=== PATIENT | male | born 1950 | race Caucasian/White ===

== ENCOUNTER → 2016-09-26 | Outpatient (CLI) | payer OTHER ==
[~2016-09-26] MED LIST: ALPR-411 PO; ASPI81TA28 PO; ATOR-22 PO; CHOL100010 PO; CHOL2000 PO; CLC6 PO; CLON1TAB3 PO; DILT-115 PO; GLC5 PO; GLC850 PO; GLIP5TAB11 PO; LISI40TA PO; MENT1CRE TOP; METF-383 PO; NTRGSL/4 UT; POLY335019 PO; PRLSR20 PO; SULF800T23 PO; TERA5CAP PO; [UNRECOGNIZED DRUG - CODE] PO
--- NOTE | 2016-09-27 05:57 | PAP/PSG TECHNICIAN REPORT ---
[facility] Pole Peeler Polysomnogram Report Study name: None Report date: 09/27/2016 Study date: 09/26/2016 Referring Physician: Karen Saldaña M.D. Name: DALLAS VILLAR Interpreting Physician: Osvaldo Newman D.O. Date of : 1950 Pole Peeler: Chris Paz RPSGT. Sex: Male Age: 66 StudyType: PSG Weight: 220 lbs Height: 66 years, Height 5' 9" BMI: 32.48 Medications: Angela Plus Test Strip, Diltiazem 240mg, Glipizide 5mg, Lisinopril 40mg, Metformin 580mg, Nitrostat 0.4mg, Omeprazole 20mg, Terazosin HCl 5mg, ASA 81mg Patient History Study started on room air with no ETCO2 monitoring in room #1. 65 yr old male here tonight for a diagnostic psg. His chief complaints are fatigue and snoring. He has diabetes and HTN. He has had HTN since he was in his 20's. His ESS=3/24.. Parameters Monitored NPSG: E1-M2, E2-M1, Fp1-M2, Fp2-M1, F3-M2, F4-M2, F4-M1, C3-M2, C4-M2, C4-M1, O1-M2, O2-M2, O2-M1, T3-M2, T4-M1, P3-M2, P4-M1, CHIN1, CHIN2, HR, EKG, Legs, PFLOW, SNOR, FLOW, CFLOW, Tidal Volume, THOR, ABDO, SpO2, PLTH, CPRESS, ETCO2 Wave, ETCO2, pH Sleep Architecture Sleep Stages Time at Lights Off 8:28:32 PM STAGES Time (min.) TST (%) Time at Lights On 5:29:32 AM Wake 171.0 -- Total Recording Time (TRT) 541.50 min. N1 25.0 7 Total Sleep Period (TSP) 432.5 min. N2 203.5 55 Total Sleep Time (TST) 370.0min. N3 53.0 14 Awake Time 171.0 min. REM 88.5 24 Wake after Sleep Onset 62.5 min. Sleep Efficiency (SE) 68 % Sleep Onset Latency (CLAU) 108.5 min. Number of Stage 1 Shifts None Awakenings 16 Stage Changes 64 Number of REM periods 5 REM 88.5 24 REM Latency 218.0 min. NREM 281.5 76 Body Position Analysis Supine Right Left Side Prone Vertical Total Sleep Time (min.) 97.1 158.0 158.3 316.28 0.0 0.0 Total Sleep Time (%) 15% 43% 43% 85 0% N/A% Total Sleep Time REM (min.) 30.5 58.0 0.0 None 0.0 0.0 Total Sleep Time NREM (min.) 23.2 100.0 158.3 None 0.0 0.0 Intermittent Wake (min.) 43.3 87.5 40.2 None 0.0 0.0 Total Sleep Period (%) 14% None None None None None Arousals Myoclonus (PLM) * Events Count Index Events Count Index Spontaneous 24 4 Events Awake (PLMW) 63 22.1 Respiratory 13 2.3 Events Asleep w/ Arousal (PLMA) 6 1.0 PLM 6 1 Events Asleep w/o Arousal (PLMS) 99 16.1 Snoring 19 3 Total Asleep 105 17.0 Total 61 10 Total 168 19 Respiratory Analysis * CA OA MA CH H RERA Total Count 0 1 0 0 36 4 37 Index 0.0 0.2 0.0 0 5.8 1 6.6 Mean Duration 0.0 13.3 0.0 0.00 21.1 16.8 20.5 Longest Duration 0.0 13.3 0.0 0.00 0.0 21.1 42.3 Respiratory Event Summary Total Supine ~Supine Right Left Prone REM NREM Apneas Count 1 1 0 0 0 N/A 1 0 Index 0.2 1 0 0.0 0.0 N/A 1 0 Hypopneas (4% Desat) Count 36 27 9 4 5 N/A 21 15 Index 5.8 30.2 2 1.5 1.9 N/A 14.2 3.2 Apneas & All Hypopneas Count 37 28 9 4 5 N/A 22 15 Index 6.0 31 2 2 2 N/A 14.9 3.2 Respiratory Events (Sheet Heater+All Hyp+RERA) Count 37 32 9 4 5 N/A 22 15 Index 6.6 36 2 1.5 1.9 N/A 16.3 3.6 Respiratory Related Arousal Count 13 32 3 0 3 N/A 5 9 Index 2.3 12 1 0 1 N/A 3 2 Snoring Analysis Supine Right Left Prone REM NREM Total Snore duration 17.2 min Snores count 385 345 206 N/A 146 790 936 Snore mean duration 1.1 Sec Snores index 430 131 78 N/A 99.0 168.4 151.8 TST with snoring (%) 4.7% Desaturation Event Summary: Minimum %SpO2 Event Count Mean/Min/Max Duration(sec.) Desaturation Index % Time In Bed > 90 32 40.1 / 15.3 / 67.9 9.4 38.4 86 - 90 19 32.6 / 12.8 / 108.6 3.5 61.3 81 - 85 0 N/A 0.0 0.3 76 - 80 0 N/A 0.0 0.0 71 - 75 0 N/A 0.0 0.0 66 - 70 0 N/A 0.0 0.0 61 - 65 0 N/A 0.0 0.0 56 - 60 0 N/A 0.0 0.0 51 - 55 0 N/A 0.0 0.0 < 50 0 N/A 0.0 0.0 Total REM NREM Awake <50% 0.0 min. 0.0 min. 0.0 min. 0.0 min. 51 - 60% 0.0 min. 0.0 min. 0.0 min. 0.0 min. 61 - 70% 0.0 min. 0.0 min. 0.0 min. 0.0 min. 71 - 80% 0.0 min. 0.0 min. 0.0 min. 0.0 min. 81 - 90% 326.2 min. 69.8 min. 229.2 min. 27.1 min. 91 - 100% 203.4 min. 18.7 min. 52.3 min. 132.4 min. Average 90 90 90 92 Minimum SpO2 82 84 85 82 Desaturation Event Index 4.7 14.9 3.0 2.1 # Desat. Events below 89% 34 20 13 1 Time(%) with Saturation below 89% 13.4 2.7 10.1 0.6 Time(min.) with Saturation below 89% 71.0 14.5 53.3 3.2 Time (mins) REM (mins) NREM (mins) % of TST SpO2 Below 90% 36 22 N14 46.5 SpO2 Below 88% 22 0 0 3 Heart Rate Analysis Min (bpm) Max (bpm) Average (bpm) Awake 50 78 59 NREM 47 65 55 REM 49 66 55 Overall 47 66 55 Supplemental O2 Values Minimum O2 level: None Value Start Time End Time Pole Peeler Comments Mr. Villar slept in the right, left and supine positions. No cardiac arrhythmia noted. Leg movements noted. No bruxism noted. Snoring was noted and scored as a 3 on a scale of 1 through 5. (0=no snoring, 5=snoring loud enough to be heard through a closed door or down the [address]) Mr. Villar awoke to use the restroom 1 time during the night. Mr. Villar stated I did not sleep as well as I do when I am in my own bed. The final report will be interpreted and signed by a sleep physician. The completed physician report will then be placed in the patient medical record. Therapy (cm H2O) 0 TIB (min.) 541.0 TST (min.) 370.0 Sleep Onset (min.) 108.5 REM Onset From Sleep (min.) 218.0 Sleep Efficiency % 68 Wakefulness (%) 32 Wakefulness (min.) 171.0 NREM 1 (%) 7 NREM 1 (min.) 25.0 NREM 2 (%) 55 NREM 2 (min.) 203.5 NREM 3 (%) 14 NREM 3 (min.) 53.0 REM (%) 24 REM (min.) 88.5 # Arousals 61 Arousal Index 10 # Snore 936 Snore Index 151.8 AHI 6.0 AHI Supine 31 AHI Non-Supine 2 NREM AHI 3.2 REM AHI 14.9 RDI 6.6 # Obstructive Apnea 1 # Central Apnea 0 # Mixed Apnea 0 # Hypopneas 36 RERAs 4 Total Respiratory Events 44 Time Below SpO2 89% (min.) 67.8 Mean NREM SpO2 (%) 90 Mean REM SpO2 (%) 90 Mean Sleep SpO2 (%) 90 Min NREM SpO2 (%) 85 Min REM SpO2 (%) 84 Position Supine (min.) 97.1 Position Non-supine (min.) 316.3 LM Index Sleep 17.0 LM Index NREM 15.3 LM Index REM 22.4 Mean Heart Rate (bpm) 55 Min Heart Rate (bpm) 47
--- NOTE | 2016-09-30 16:04 | Sleep Study ---
Sleep Study Report Date of Service: 09/26/2016 Sleep Study Report Clinical data: The patient is a 66-year-old male who has a history of snoring and fatigue. He has a BMI elevated at 32.48. The patient has a history of hypertension and diabetes. His [place] score is 3. The patient is referred by Dr. Karen Saldaña. This was an in-lab diagnostic polysomnography. Sleep architecture: The total sleep period was 432.5 minutes. The total sleep time was 370.0 minutes. The sleep efficiency was moderately reduced to 68 percent. The sleep onset was significantly prolonged to 106.5 minutes. Wake after sleep onset was prolonged to 62.5 minutes. REM latency was prolonged to 218 minutes. Sleep consisted of stage N1 7 percent, stage N2 55 percent, stage N3 14 percent, and stage REM 24 percent. Arousal data: Patient had a total of 61 arousals including 24 spontaneous arousals, 13 respiratory arousals, 6 PLM arousals, and 19 snoring arousals. The arousal index was 10. PLM data: Patient had a total of 105 periodic limb movements of sleep for a PLM index of 17.0. There were 6 arousals associated with limb movements for a PLM arousal index of 1.0. EKG: The underlying cardiac rhythm was normal sinus. The cardiac rate ranged from 47 to 66 beats per minute. The average heart rate was 55 beats per minute. No cardiac arrhythmia was noted. Respiratory data: The patient had a total of 37 respiratory events including 1 obstructive apnea and 36 hypopneas. The hypopneas were scored according to the 4 percent desaturation rule. The apnea was 13.3 seconds in length. Mean duration of hypopneas was 21.1 seconds. The apnea-hypopnea index was mildly elevated at 6.0. This reflects mild sleep apnea. In addition the patient had 4 RERAS. Oximetry data: The average saturation was 90 percent. The minimum saturation was 82 percent. There was a total of 71 minutes with saturations less than 89 percent. Patternator comments: The patient slept on the right, left, and supine positions. No cardiac arrhythmias noted. Leg movements noted. No bruxism noted. Snoring was noted and scored as a 3 on a scale of 1 through 5. The patient awaken to use the restroom 1 time during the night. Impressions: 1. Obstructive sleep apnea-mild 2. Periodic limb movement disorder Comments: Patient has mild sleep apnea. He also has symptoms in the form of snoring and fatigue. He has hypertension and diabetes as comorbidities. He was hypoxic intermittently during the nighttime. In light of this would be advised that the patient be given a trial of treatment with nasal CPAP therapy. Recommendations: 1. It is suggested that the patient be given a trial of nasal CPAP. This could either be accomplished by a referral back to [facility] for a CPAP titration study or alternatively treatment with auto CPAP. 2. Patient has an elevated body mass index of 32.48. A weight reduction program is advised. 3. It is suggested that the patient avoid sleeping in the supine position is there is typically more respiratory events and snoring when supine. 4. The patient does have an elevation of the periodic limb movement index. It is advised that the sleep apnea be treated primarily. Following that treatment assessment can then be made regarding his limb movement abnormalities. 5. The patient should be advised the appropriate principles of sleep hygiene including having a regular sleep-wake schedule and allowing approximately 7.5-8 hours of sleep per night. Copies To 1: Osvaldo Newman DO; Karen Saldaña M.D.
== END | disposition home or self-care (01) ==
LOC: C.NEUR 20:00
PROVIDERS: ATTEND Family Medicine Adult Medicine
DX: R06.83 Snoring (principal); R53.83 Other fatigue; Z79.899 Other long term (current) drug therapy

== ENCOUNTER 2016-10-09 21:48 | Emergency (ER) | payer OTHER ==
[~2016-10-09] VITALS: Ht 175.3 cm; Wt 98.2 kg
[~2016-10-09 21:48] MED LIST changes: -ATOR-22 PO; -CHOL2000 PO; -GLIP5TAB11 PO; -METF-383 PO; -SULF800T23 PO; -TERA5CAP PO; -[UNRECOGNIZED DRUG - CODE] PO
[2016-10-09 21:54] VITALS: TEMP 36.3; Ht 175.3 cm; Wt 98.2 kg
[2016-10-09] MEDS ORDERED: SULFAMETHOXAZOLE/TRIMETHOPRIM DS 800/160MG TAB PO STA (22:12)
--- NOTE | 2016-10-09 22:25 | EMERGENCY ROOM VISIT NOTE ---
History Report prepared by Berta: Chanell Jarrett Under the Supervision of: Dr. Annabelle Rhodes M.D. First contact with patient: 22:06 Chief Complaint: INFECTION Stated Complaint: CELLULITIS, ANKLE RIGHT History of Present Illness The patient is a 66 year old male who presents to the Emergency Room with complaints of a constant right ankle infection beginning 1 week ago. The patient states that 1 week ago he scratched his ankle and it became infected. He reports that after he noticed that there was some swelling and redness he was seen by his PCP and was told to put hydrocortisone on the area. He notes that the infection continued to worsen and 2 days ago he was seen at [facility] and was put on Keflex. The patient states that he has a history of diabetes and his sugars have been higher since being on Keflex. He reports that he had a fever and chills when his symptoms started. Source of History: patient Onset: 1 week ago Position: ankle (right) Quality: other (infection) Timing: constant Associated Symptoms: + fevers, + chills Note: Pt complains of redness and swelling. Review of Systems See HPI for pertinent positives & negatives. A total of 10 systems reviewed and were otherwise negative. Past Medical & Surgical Medical Problems: (1) Anxiety (2) Benign hypertension (3) Cervical disc disorder (4) CYST OF KIDNEY, ACQUIRED (5) Cyst of thyroid (6) Diabetes mellitus type 2 (7) Dyslipidemia (8) Generalized osteoarthritis (9) History of - gout (10) Hyponatremia (11) Proteinuria Family History No pertinent family history stated. Social History Smoking Status: Never Smoker Drug Use: none Marital Status: Housing Status: lives with family Current/Historical Medications Scheduled Alprazolam (Xanax), 0.5 MG PO HS Aspirin (Aspirin Ec), 81 MG PO DAILY Atorvastatin (Lipitor), 10 MG PO HS Cholecalciferol (Vitamin D3), 2,000 INTER.UNIT PO DAILY Clonazepam (Klonopin), 1 MG PO TID Diltiazem Hcl Ext Rel (Tiazac), 240 MG PO QPM Glipizide (Glucotrol), 5 MG PO BID Guar Gum (Bulk) (Guar Gum), 2 TSP PO QAM Lisinopril (Zestril), 40 MG PO DAILY Metformin Hcl (Glucophage), 850 MG PO DAILY Omeprazole (Prilosec), 20 MG PO DAILY Sulfa/Trimethoprim (Bactrim Ds 800MG/160MG), 1 TAB PO BID Terazosin (Hytrin), 5 MG PO HS Scheduled PRN Menthol-Methyl Salicylate (Dara (Muscle Rub), 1 APPLN TOP Q4H PRN for Pain Nitroglycerin (Nitrostat), 0.4 MG UT UD PRN for Chest Pain Allergies Coded Allergies: No Known Allergies (Unverified , 11/18/15) Physical Exam Vital Signs Date Time Temp Pulse Resp B/P (MAP) Pulse Ox O2 Delivery O2 Flow Rate FiO2 10/09/16 23:30 71 18 148/81 95 Room Air 10/09/16 21:54 36.3 89 18 128/72 96 Room Air Physical Exam Vital signs reviewed. General: Well-appearing male, in no significant distress. HEENT: No scleral icterus, PERRLA, neck supple. Atraumatic. Cardiovascular: Regular rate and rhythm, no extra sounds. Pulmonary: Clear to auscultation bilaterally, normal work of breathing. Abdomen: Soft, nontender, nondistended, positive bowel sounds. Musculoskeletal: Atraumatic, no peripheral edema. Neurologic: Patient awake alert and oriented x 3 Skin: 6cm area of erythema to medial right ankle, no fluctuance, no drainage. There is no lymphangitic streaking. Medical Decision & Procedures Laboratory Results 10/09/16 22:31 Red Blood Count 4.29, Mean Corpuscular Volume 87.6, Mean Corpuscular Hemoglobin 31.9, Mean Corpuscular Hemoglobin Concent 36.4, Mean Platelet Volume 10.6, Neutrophils (%) (Auto) 67.6, Lymphocytes (%) (Auto) 21.3, Monocytes (%) (Auto) 8.1, Eosinophils (%) (Auto) 2.6, Basophils (%) (Auto) 0.3, Neutrophils # (Auto) 5.25, Lymphocytes # (Auto) 1.65, Monocytes # (Auto) 0.63, Eosinophils # (Auto) 0.20, Basophils # (Auto) 0.02 10/09/16 22:31 Test 10/09/16 22:31 White Blood Count 7.76 K/uL (4.8-10.8) Red Blood Count 4.29 M/uL (4.7-6.1) Hemoglobin 13.7 g/dL (14.0-18.0) Hematocrit 37.6 % (42-52) Mean Corpuscular Volume 87.6 fL (80-100) Mean Corpuscular Hemoglobin 31.9 pg (25-34) Mean Corpuscular Hemoglobin Concent 36.4 g/dl (32-36) Platelet Count 176 K/uL (130-400) Mean Platelet Volume 10.6 fL (7.4-10.4) Neutrophils (%) (Auto) 67.6 % Lymphocytes (%) (Auto) 21.3 % Monocytes (%) (Auto) 8.1 % Eosinophils (%) (Auto) 2.6 % Basophils (%) (Auto) 0.3 % Neutrophils # (Auto) 5.25 K/uL (1.4-6.5) Lymphocytes # (Auto) 1.65 K/uL (1.2-3.4) Monocytes # (Auto) 0.63 K/uL (0.11-0.59) Eosinophils # (Auto) 0.20 K/uL (0-0.5) Basophils # (Auto) 0.02 K/uL (0-0.2) RDW Standard Deviation 39.1 fL (36.4-46.3) RDW Coefficient of Variation 12.2 % (11.5-14.5) Immature Granulocyte % (Auto) 0.1 % Immature Granulocyte # (Auto) 0.01 K/uL (0.00-0.02) Anion Gap 11.0 mmol/L (3-11) Est Creatinine Clear Calc Drug Dose 59.2 ml/min Estimated GFR () 59.8 Estimated GFR (Non- 51.6 BUN/Creatinine Ratio 14.4 (10-20) Calcium Level 9.0 mg/dl (8.5-10.1) Total Bilirubin 0.7 mg/dl (0.2-1) Direct Bilirubin 0.2 mg/dl (0-0.2) Aspartate Amino Transf (AST/SGOT) 23 U/L (15-37) Alanine Aminotransferase (ALT/SGPT) 43 U/L (12-78) Alkaline Phosphatase 78 U/L (45-117) Total Protein 7.2 gm/dl (6.4-8.2) Albumin 3.6 gm/dl (3.4-5.0) Laboratory results per my review. Medications Administered Medications (Trade) Dose Ordered Sig/Bee Route Start Time Stop Time Status Last Admin Dose Admin Trimethoprim/ Sulfamethoxazole (Septra Ds 800/ 160MG Tab) 1 tab NOW STAT PO 10/09/16 22:12 10/09/16 22:13 DC 10/09/16 22:43 1 TAB ED Course 2226: Past medical records reviewed. The patient was evaluated in room A12B. A complete history and physical examination was performed. 2212: Trimethoprim/Sulfamethoxazole 1 tab PO. 2352: I reevaluated and updated the patient. 0003: Upon reevaluation, the patient appeared to have improvement of his symptoms. I discussed findings with the patient. He verbalized agreement of the treatment plan. The patient was discharged home. Medical Decision Differential diagnosis: Etiologies such as cellulitis, abscess, MRSA infection, DVT, necrotizing fasciitis, dermatitis, drug eruption, as well as others were entertained. This patient was evaluated and appeared to be in no significant distress. IV access was obtained and laboratory work was drawn. The patient was given Bactrim DS 1 tablet orally. He does not appear to be septic, white blood cell count is normal. Cellulitis is relatively localized. Patient was advised to continue his Keflex as prescribed, he will add Bactrim DS 1 tablet twice a day for 7 days. He will elevate the foot as much as possible and follow-up with the this week for reevaluation. He will return to the ER for worsening of symptoms or any medical concerns. Medication Reconcilliation Current Medication List: was personally reviewed by me Blood Pressure Screening Patient's blood pressure: Normal blood pressure Blood pressure disposition: Did not require urgent referral Impression Primary Impression: Cellulitis of left lower extremity Scribe Attestation The scribe's documentation has been prepared under my direction and personally reviewed by me in its entirety. I confirm that the note above accurately reflects all work, treatment, procedures, and medical decision making performed by me. Departure Information Dispostion Home / Self-Care Prescriptions Sulfa/Trimethoprim (Bactrim Ds 800MG/160MG) Tab 1 TAB PO BID, #14 TAB Prov: Annabelle Rhodes M.D. 10/10/16 Referrals Karen Saldaña M.D. (PCP) Forms HOME CARE DOCUMENTATION FORM, IMPORTANT VISIT INFORMATION, WORK / SCHOOL INSTRUCTIONS Patient Instructions My [facility] Additional Instructions Diagnosis: cellulitis Bactrim DS one tablet twice a day for 7 days. Continue your Keflex as prescribed. Elevate the leg as much as possible. Follow-up with your physician this week for reevaluation. Return to the ER for worsening of symptoms or any medical concerns.
[2016-10-09] MEDS ORDERED: GLIP5TAB11 PO (22:30)
[2016-10-09] MEDS ORDERED: TERA5CAP PO (22:30)
[2016-10-09] MEDS ORDERED: METF-383 PO (22:30)
[2016-10-09] MEDS ORDERED: ATOR-22 PO (22:30)
[2016-10-09] MEDS ORDERED: CHOL2000 PO (22:32)
[2016-10-09] MEDS ORDERED: [UNRECOGNIZED DRUG - CODE] PO (22:33)
[2016-10-09 22:48] LABS: BASO % 0.3 %; BASO ABS # 0.02 K/uL (0-0.2); COMPLETE YES; EOS % 2.6 %; HEMATOCRIT 37.6 % (42-52); IG% 0.1 %; LYMPH % 21.3 %; LYMPH ABS # 1.65 K/uL (1.2-3.4); MEAN CELL VOLUME 87.6 fL (80-100); MEAN CORPUSCULAR HEMOGLOBIN 31.9 pg (25-34); MEAN CORPUSCULAR HGB CONC 36.4 g/dl (32-36); MEAN PLATELET VOLUME 10.6 fL (7.4-10.4); MONO % 8.1 %; NEUT % 67.6 %; PLATELET COUNT 176 K/uL (130-400); RED BLOOD COUNT 4.29 M/uL (4.7-6.1); WHITE BLOOD COUNT 7.76 K/uL (4.8-10.8)
[2016-10-09 23:07] LABS: BUN/CREATININE RATIO 14.4 (10-20); CREATININE 1.4 mg/dl (0.60-1.40); POTASSIUM 3.9 mmol/L (3.5-5.1)
[2016-10-09 23:30] VITALS: BP 148/81; PULSE 71; O2SAT 95
[2016-10-10] MEDS ORDERED: SULF800T23 PO
== END 2016-10-10 00:05 | disposition home or self-care (01) ==
LOC: C.EDB 21:49 → C.EDA 10-10 00:05
DX: L03.115 Cellulitis of right lower limb (principal); E11.9 Type 2 diabetes mellitus without complications; F41.9 Anxiety disorder, unspecified; I10 Essential (primary) hypertension; E78.5 Hyperlipidemia, unspecified; M19.90 Unspecified osteoarthritis, unspecified site; E87.1 Hypo-osmolality and hyponatremia; R80.9 Proteinuria, unspecified; Z79.82 Long term (current) use of aspirin; Z79.899 Other long term (current) drug therapy

== ENCOUNTER → 2016-10-16 | Outpatient (CLI) | payer OTHER ==
[~2016-10-16] MED LIST changes: +ATOR-22 PO; -CHOL100010 PO; +CHOL2000 PO; -CLC6 PO; -GLC5 PO; -GLC850 PO; +GLIP5TAB11 PO; +METF-383 PO; -POLY335019 PO; +SULF800T23 PO; +TERA5CAP PO; +[UNRECOGNIZED DRUG - CODE] PO
--- NOTE | 2016-10-17 05:19 | PAP/PSG TECHNICIAN REPORT ---
[facility] Pantograph Watcher Polysomnogram Report Study name: None Report date: 10/17/2016 Study date: 10/16/2016 Referring Physician: Karen Saldaña M.D. Name: DALLAS VILLAR Interpreting Physician: Osvaldo Newman D.O. Date of : 1950 Pantograph Watcher: Divya Gregory [facility]. Sex: Male Age: 66 Study Type: PSG PAP Weight: 220 lbs Height: 66 years, Height 5' 9" BMI: 32.48 Medications: Angela Plus Test Strip, Diltiazem 240mg, Glipizide 5mg, Lisinopril 40mg, Metformin 580mg, Nitrostat 0.4mg, Omeprazole 20mg, Terazosin HCl 5mg, ASA 81mg Patient History 66 yr-old male here for a new CPAP treatment study. He was found to be positive for FÁTIMA with an AHI of 6. His diagnostic study was on 09/26/16. He chose an AirFit F10 full face mask size medium from [employer]. The test was started on room air and 4 CMH2O. ETCO2 testing was not utilized during this study. Room 1 Parameters Monitored NPSG: E1-M2, E2-M1, Fp1-M2, Fp2-M1, F3-M2, F4-M2, F4-M1, C3-M2, C4-M2, C4-M1, O1-M2, O2-M2, O2-M1, T3-M2, T4-M1, P3-M2, P4-M1, CHIN1, CHIN2, HR, EKG, Legs, PFLOW, SNOR, FLOW, CFLOW, Tidal Volume, THOR, ABDO, SpO2, PLTH, CPRESS, ETCO2 Wave, ETCO2, pH Sleep Architecture Sleep Stages Time at Lights Off 9:30:23 PM STAGES Time (min.) TST (%) Time at Lights On 4:57:23 AM Wake 152.5 -- Total Recording Time (TRT) 447.00 min. N1 49.0 17 Total Sleep Period (TSP) 384.5 min. N2 202.5 69 Total Sleep Time (TST) 294.5min. N3 0.0 0 Awake Time 152.5 min. REM 43.0 15 Wake after Sleep Onset 110.5 min. Sleep Efficiency (SE) 66 % Sleep Onset Latency (CLAU) 42.0 min. Number of Stage 1 Shifts None Awakenings 16 Stage Changes 70 Number of REM periods 3 REM 43.0 15 REM Latency 284.0 min. NREM 251.5 85 Body Position Analysis Supine Right Left Side Prone Vertical Total Sleep Time (min.) 1.6 259.5 35.0 294.50 0.0 0.0 Total Sleep Time (%) 0% 88% 12% 100 0% N/A% Total Sleep Time REM (min.) 0.0 43.0 0.0 None 0.0 0.0 Total Sleep Time NREM (min.) 0.0 216.5 35.0 None 0.0 0.0 Intermittent Wake (min.) 1.6 94.2 56.7 None 0.0 0.0 Total Sleep Period (%) 0% None None None None None Arousals Myoclonus (PLM) * Events Count Index Events Count Index Spontaneous 48 10 Events Awake (PLMW) 67 26.4 Respiratory 0 0.0 Events Asleep w/ Arousal (PLMA) 3 0.6 PLM 3 1 Events Asleep w/o Arousal (PLMS) 76 15.5 Snoring 9 2 Total Asleep 79 16.1 Total 60 12 Total 146 20 Respiratory Analysis * CA OA MA CH H RERA Total Count 0 0 0 0 2 0 2 Index 0.0 0.0 0.0 0 0.4 0 0.4 Mean Duration 0.0 0.0 0.0 0.00 23.4 0.0 23.4 Longest Duration 0.0 0.0 0.0 0.00 0.0 0.0 26.7 Respiratory Event Summary Total Supine ~Supine Right Left Prone REM NREM Apneas Count 0 N/A 0 0 0 N/A 0 0 Index 0.0 N/A 0 0.0 0.0 N/A 0 0 Hypopneas (4% Desat) Count 2 N/A 2 2 0 N/A 0 2 Index 0.4 N/A 0 0.5 0.0 N/A 0.0 0.5 Apneas & All Hypopneas Count 2 N/A 2 2 0 N/A 0 2 Index 0.4 N/A 0 0 0 N/A 0.0 0.5 Respiratory Events (Electrical Controls Engineer+All Hyp+RERA) Count 2 N/A 2 2 0 N/A 0 2 Index 0.4 N/A 0 0.5 0.0 N/A 0.0 0.5 Respiratory Related Arousal Count 0 N/A 0 0 0 N/A 0 0 Index 0.0 N/A 0 0 0 N/A 0 0 Snoring Analysis Supine Right Left Prone REM NREM Total Snore duration 0.7 min Snores count N/A 18 3 N/A 6 15 21 Snore mean duration 2.1 Sec Snores index N/A 4 5 N/A 8.4 3.6 4.3 TST with snoring (%) 0.2% Desaturation Event Summary: Minimum %SpO2 Event Count Mean/Min/Max Duration(sec.) Desaturation Index % Time In Bed > 90 11 39.6 / 18.5 / 60.0 2.1 74.4 86 - 90 1 48.5 / 48.5 / 48.5 0.6 25.0 81 - 85 0 N/A 0.0 0.5 76 - 80 0 N/A 0.0 0.1 71 - 75 0 N/A 0.0 0.0 66 - 70 0 N/A 0.0 0.0 61 - 65 0 N/A 0.0 0.0 56 - 60 0 N/A 0.0 0.0 51 - 55 0 N/A 0.0 0.0 < 50 0 N/A 0.0 0.0 Total REM NREM Awake <50% 0.0 min. 0.0 min. 0.0 min. 0.0 min. 51 - 60% 0.0 min. 0.0 min. 0.0 min. 0.0 min. 61 - 70% 0.0 min. 0.0 min. 0.0 min. 0.0 min. 71 - 80% 0.4 min. 0.0 min. 0.0 min. 0.4 min. 81 - 90% 110.0 min. 10.6 min. 92.9 min. 6.5 min. 91 - 100% 321.0 min. 32.4 min. 157.2 min. 131.4 min. Average 92 91 91 93 Minimum SpO2 76 89 82 76 Desaturation Event Index 1.5 1.4 0.7 3.1 # Desat. Events below 89% 3 N/A 1 2 Time(%) with Saturation below 89% 0.9 0.0 0.4 0.4 Time(min.) with Saturation below 89% 3.7 0.0 1.9 1.8 Time (mins) REM (mins) NREM (mins) % of TST SpO2 Below 90% 2 N/A N2 5.4 SpO2 Below 88% 1 0 0 0 Heart Rate Analysis Min (bpm) Max (bpm) Average (bpm) Awake 44 237 58 NREM 43 70 48 REM 47 59 52 Overall 43 70 48 Supplemental O2 Values Minimum O2 level: None Value Start Time End Time Pantograph Watcher Comments Mr. Villar slept in the right and left positions. No cardiac arrhythmias were noted. Some PLMs were noted. No bruxism noted. CPAP was initiated at +4 CMH2O and remained at a level of +4 CMH2O, Cflex 2 which nearly eliminated all respiratory events and snoring. An AirFit F10 full face mask size medium from [employer] was used during titration He awoke to use the restroom two times during the night. He woke up a little before 5 am, and stated that he was awake and wanted to end the study. Mr. Villar stated that he slept poorly. The final report will be interpreted and signed by a sleep physician. The completed physician report will then be placed in the patient medical record. Therapy Event: Therapy (cm H20) 4 Total Time at Pressure (min.) 447.0 TST at Pressure (min.) 294.5 # Periods 1 Sleep Onset (min.) 42.0 REM Onset (min.) 326.0 Sleep Efficiency % 65 Wakefulness (%) 34.1 Wakefulness (min.) 152.5 NREM 1 (%) 11.0 NREM 1 (min.) 49.0 NREM 2 (%) 45.3 NREM 2 (min.) 202.5 NREM 3 (%) 0.0 NREM 3 (min.) 0.0 REM (%) 9.6 REM (min.) 43.0 # Arousals 60 Arousal Index 12.2 # Snore 21 Snore Index 4.3 AHI 0.4 AHI Supine N/A AHI Non-Supine 0.4 NREM AHI 0.5 REM AHI 0.0 RDI 0.4 # Obstructive 0 # Central Ap 0 # Mixed 0 # Hypopneas 2 RERAS 0 Total Respiratory Events 2 Time Below SpO2 89.00% (min.) 1.9 Mean NREM SpO2 (%) 91 Mean REM SpO2 (%) 91 Mean Sleep SpO2 (%) 91 Min NREM SpO2 (%) 82 Min REM SpO2 (%) 89 Position Supine (min.) 0.0 Position Non-supine (min.) 294.5 LM Index Sleep 16.1 LM Index NREM 16.0 LM Index REM 16.7 Mean Heart Rate (bpm) 48 Min Heart Rate (bpm) 43
--- NOTE | 2016-10-19 07:56 | Sleep Study ---
Sleep Study Report Date of Service: 10/16/2016 Sleep Study Report Clinical data: The patient is a 66-year-old male who has a history of snoring and fatigue. His BMI is elevated at 32.48. He has a history of hypertension and diabetes. His S[place] score is 3. Mr. Starr had a 1st night diagnostic sleep study on . This showed obstructive sleep apnea with an apnea-hypopnea index of 6.0 and oxygen saturations were as low as 82 percent. [facility]ration study. He is referred by Dr. Karen Saldaña. This was an in-lab CPAP titration study. Sleep architecture: The total sleep period was 384.5 minutes. The total sleep time was 294.5 minutes. The sleep efficiency was 66 percent. Sleep latency was 42 minutes. Wake after sleep onset was 110.5 minutes. The REM latency was prolonged to 284 minutes. Sleep consisted of stage N1 17 percent, stage N2 69 percent, stage N3 0 percent , and stage REM 15 percent. Arousal data: The patient had a total of 60 arousals including 48 spontaneous arousals, 3 PLM arousals, and 9 snoring arousals. The arousal index was 12. PLM data: Patient had a total of 79 periodic limb movements of sleep for a PLM index of 16.1. There were 3 arousals associated with limb movements for a PLM arousal index of 0.6. EKG: The underlying cardiac rhythm was normal sinus. The cardiac rates ranged from 43 up to 70 beats per minute. The average heart rate was 48 beats per minute. No cardiac arrhythmia was noted. Respiratory data: The patient's nocturnal events were treated with nasal CPAP at 4 centimeters. There was a total of 2 respiratory events, both of which were hypopneas. Hypopneas were scored according to the 4 percent desaturation rule. The mean duration of the hypopneas was 23.4 seconds. The apnea-hypopnea index was normal at 0.4. Oximetry data: The average saturation was 92 percent. The listed minimum saturation was 76 percent. However, this was technical and was not due to a true desaturation. The true minimum saturation is 89 percent. Non Destructive Evaluation Specialist comments: The patient slept in the right and left positions. No cardiac arrhythmias were noted. Some PLMS were noted. No bruxism noted. CPAP was initiated at 4 centimeters and remained at a level of 4 centimeters. C flex 2 was utilized. This nearly eliminated all respiratory events and snoring. An air fit F10 full face mask size medium from [employer] was used during titration. The patient awaken to use the restroom 2 times during the night. Impressions: 1. Obstructive sleep apnea-resolved with nasal CPAP at 4 centimeters Comments: The patient had some difficulty tolerating nasal CPAP. His sleep efficiency was decreased to 66 percent. His sleep apnea was resolved at low pressures. There was no significant hypoxia. He had a modest number of limb movements that were similar to the 1st night study. Patient did have some difficulty adapting. He had a period of wake from 12:35 a.m. until 1:44 a.m.. Patient did not feel that he slept well. I suspect the patient's major discomfort was from the mask. Following the study he made the comment on the post sleep questionnaire " I do not like to snorkel". Although he was titrated to 4 centimeters, it could be that some of his discomfort was related to feeling a lack of air. Thus I believe setting the pressure at 5 centimeters may offer him some benefit. Recommendations: 1. It is advised that the patient be started on nasal CPAP at 5 centimeters with C flex 2. 2. It is suggested that he be ordered an air fit F10 full face mask size medium from [employer] or mask of choice. It is possible he may find a nasal mask more comfortable. 3. The patient has an elevated body mass index of 32.48. A weight reduction program is advised. 4. The patient should be advised regarding the appropriate principles of sleep hygiene including having a regular sleep-wake schedule and allowing approximately 7.5-8 hours of sleep per night. 5. The patient should be seen in follow-up between day 31 day 90. Compliance data should be obtained. Copies To 1: Osvaldo Newman DO; Karen Saldaña M.D.
== END | disposition home or self-care (01) ==
LOC: C.NEUR 20:00
PROVIDERS: ATTEND Internal Medicine Pulmonary Disease
DX: G47.33 Obstructive sleep apnea (adult) (pediatric) (principal); R53.83 Other fatigue; R06.83 Snoring

== ENCOUNTER 2020-09-14 15:51 | Observation (INO) ==
[2020-09-14] MEDS ORDERED: ASPIRIN CHEW 324 MG PO STA (18:26)
[2020-09-14 19:21] LABS: Basophils # (auto) 0.02 K/uL (0-0.2); Basophils % (auto) 0.2 %; Eosinophils # (auto) 0.13 K/uL (0-0.5); Eosinophils % (auto) 1.5 %; Immature Granulocytes # (auto) 0.02 K/uL (0.00-0.02); Immature Granulocytes % (auto) 0.2 %; Lymphocytes # (auto) 1.27 K/uL (1.2-3.4); Lymphocytes % (auto) 14.8 %; Mean Corpuscular Hemoglobin 29.9 pg (25-34); Mean Corpuscular Hgb Conc 34.3 g/dL (32-36); Mean Corpuscular Volume 87.1 fL (80-100); Mean Platelet Volume 9.6 fL (7.4-10.4); Monocytes # (auto) 0.52 K/uL (0.11-0.59); Neutrophils # (auto) 6.65 K/uL (1.4-6.5); Neutrophils % (auto) 77.3 %; Platelet Count 245 K/uL (130-400); RDW Standard Deviation 42.1 fL (36.4-46.3); Red Blood Count 4.02 M/uL (4.7-6.1); White Blood Count 8.61 K/uL (4.8-10.8)
[2020-09-14 19:39] LABS: Partial Thromboplastin Time 25.4 Seconds (21.0-31.0)
[2020-09-14 19:44] LABS: Albumin Level 3.7 gm/dl (3.4-5.0); BUN Creatinine Ratio 14.7 (10-20); Calcium 8.9 mg/dl (8.5-10.1); Creatinine Clr Calc Pharmacy 58.9 ml/min; Est GFR (African American) 62.9 ml/min; Est GFR (Non-African American) 54.3 ml/min; Potassium 4.3 mmol/L (3.5-5.1)
[2020-09-14 19:48] LABS: Albumin Globulin Ratio 1.2 (0.9-2); Bilirubin,Total 0.3 mg/dl (0.2-1); Globulin 3.2 gm/dl (2.5-4.0); Total Protein 6.9 gm/dl (6.4-8.2); Troponin I 0.028 ng/ml (0-0.045)
--- NOTE | 2020-09-14 20:32 | XRay Report ---
SINGLE VIEW CHEST CLINICAL HISTORY: Atypical chest pain. FINDINGS: 2 AP, portable, upright chest radiographs are compared to study dated 11/29/1910. The heart is top normal in size noting atherosclerotic calcification of the thoracic aorta. The pulmonary vascu lature is noncongested. The lungs and pleural spaces are clear. No pneumothorax is seen. The skeletal structures are osteopenic. The bony thorax is grossly intact. IMPRESSION: No active disease in the chest. ACT 112: Negative or not required by law. Electronically signed by: Henry Ramirez M.D. 09/14/2020 8:30 PM
[2020-09-14 20:47] LABS: Lyme Ab IgG w/WB Rflx Negative (Negative)
[2020-09-14 20:49] LABS: Lyme Ab IgM w/WB Rflx Equivocal (Negative)
[2020-09-14] MEDS ORDERED: DOXYCYCLINE HYCLATE 100 MG CAP PO STA (21:17)
--- NOTE | 2020-09-14 21:34 | Emergency Department Note ---
History of Present Illness General Chief complaint: Cardiac Assessment Stated complaint: PALPITATIONS,RAPID HEART BEAT,HTN Time Seen by Provider: 09/14/20 17:49 Source: patient, family ( at the bedside) and RN notes reviewed Mode of arrival: ambulatory Limitations: no limitations History of Present Illness Provider complaint: Shortness of breath with exertion, L arm heaviness, heart palpitations Maximum Pain Intensity: 3 This patient is a 69-year-old male who presents to the emergency department with complaints of heart palpitations, elevated blood pressure and shortness of breath with exertion. Patient states he will feel a left arm discomfort when he walks and notes his heart rate goes into the 120s. Patient states his blood pressure medication was just altered by his local announcer at the [place] to increase his diltiazem to 300 mg daily and to add hydralazine 50 mg twice a day. He does not believe that this is controlling his blood pressure well and believes it is contributing to his tachycardia. Patient denies any fevers, chills, abdominal pain, nausea or diarrhea. He denies any history of blood clots. He does not smoke cigarettes. He states he does have an anxiety disorder related to his time in the . Home Medications Medication Instructions Recorded Confirmed Type alprazolam [Xanax] 0.5 mg PO HS PRN 09/14/20 09/14/20 History aspirin [Aspirin Low Dose] 81 mg PO QAM 09/14/20 09/14/20 History atorvastatin [Lipitor] 10 mg PO HS 09/14/20 09/14/20 History cholecalciferol (vitamin D3) 50 mcg PO QAM 09/14/20 09/14/20 History [Vitamin D3] clonazepam 1 mg PO BID 09/14/20 09/14/20 History diltiazem HCl 300 mg PO QPM 09/14/20 09/14/20 History glipizide 5 mg PO BID 09/14/20 09/14/20 History hydralazine 50 mg PO BID 09/14/20 09/14/20 History lisinopril 40 mg PO QAM 09/14/20 09/14/20 History metformin 850 mg PO BID 09/14/20 09/14/20 History methyl salicylate-menthol [Muscle 1 applic TOPICAL Q4H PRN 09/14/20 09/14/20 History Rub] nitroglycerin [Nitrostat] 0.4 mg SUBLINGUAL UD PRN 09/14/20 09/14/20 History omeprazole 20 mg PO DAILY 09/14/20 09/14/20 History terazosin 10 mg PO PM 09/14/20 09/14/20 History Allergies Allergy/AdvReac Type Severity Reaction Status Date / Time No Known Allergies Allergy Unverified 09/14/20 21:50 Past Med/Surg History Medical History (Updated 09/14/20 @ 21:43 by Annabelle Rhodes MD) Anxiety Diabetes GERD (gastroesophageal reflux disease) Hypertension Social History (Updated 09/14/20 @ 21:37 by Annabelle Rhodes MD) Smoking Status: Former smoker Tobacco Type: Cigarettes Preferred Language: [place] marital status: Current Living Situation: Spouse Feels Safe at Home: Yes Review of Systems See HPI for pertinent positives & negatives. and A total of 10 systems reviewed and were otherwise negative Physical Exam Vital Signs Vital Signs - 24 hr 09/14/20 15:56 09/14/20 15:59 09/14/20 17:57 Temperature 36.7 C Temperature Source Temporal Artery Scan Pulse Rate 115 H 81 Pulse Rate from SpO2 Sensor Respiratory Rate 18 17 Respiratory Effort / Characteristics Non-Labored Spontaneous Non-Labored Spontaneous Respiratory Depth Normal Normal Respiratory Pattern Regular Blood Pressure 147/69 H 172/82 H Blood Pressure Mean 95 112 Blood Pressure Position Sitting Pulse Oximetry 95 97 Oxygen Delivery Method Room Air Room Air Sepsis Recent Fever Within 48 Hours No Sepsis New/Unexplained Change in Mental Status N/A Sepsis Action Taken by Nursing No Action Required 09/14/20 18:20 09/14/20 18:30 09/14/20 18:45 Temperature Temperature Source Pulse Rate 71 78 Pulse Rate from SpO2 Sensor Respiratory Rate 15 14 Respiratory Effort / Characteristics Respiratory Depth Respiratory Pattern Blood Pressure 156/82 H 158/83 H Blood Pressure Mean 106 108 Blood Pressure Position Pulse Oximetry 96 95 Oxygen Delivery Method Room Air Room Air Sepsis Recent Fever Within 48 Hours Sepsis New/Unexplained Change in Mental Status Sepsis Action Taken by Nursing 09/14/20 19:30 09/14/20 19:43 09/14/20 19:49 Temperature Temperature Source Pulse Rate 72 83 Pulse Rate from SpO2 Sensor 71 Respiratory Rate 15 16 Respiratory Effort / Characteristics Respiratory Depth Respiratory Pattern Blood Pressure 142/79 H 156/85 H Blood Pressure Mean 100 108 Blood Pressure Position Pulse Oximetry 96 96 95 Oxygen Delivery Method Sepsis Recent Fever Within 48 Hours Sepsis New/Unexplained Change in Mental Status Sepsis Action Taken by Nursing 09/14/20 20:00 09/14/20 20:30 09/14/20 21:00 Temperature Temperature Source Pulse Rate 69 67 72 Pulse Rate from SpO2 Sensor Respiratory Rate 12 13 15 Respiratory Effort / Characteristics Respiratory Depth Respiratory Pattern Blood Pressure 149/77 H 143/71 H 144/75 H Blood Pressure Mean 101 95 98 Blood Pressure Position Pulse Oximetry 96 95 95 Oxygen Delivery Method Sepsis Recent Fever Within 48 Hours Sepsis New/Unexplained Change in Mental Status Sepsis Action Taken by Nursing Vital signs reviewed. Noted General: Chronically ill-appearing 69-year-old male, in no significant distress. HEENT: No scleral icterus, PERRLA, neck supple. Atraumatic. Cardiovascular: Regular rate and rhythm, no extra sounds. Pulmonary: Clear to auscultation bilaterally, normal work of breathing. Abdomen: Soft, nontender, nondistended, positive bowel sounds. Musculoskeletal: Atraumatic, no peripheral edema. Neurologic: Patient awake alert and oriented x 3 Skin: Warm, dry, no rash Course Administered Medications Discontinued Medications Aspirin (Aspirin Chew 324 Mg) 243 mg PO NOW STA Stop: 09/14/20 18:27 Last Admin: 09/14/20 18:48 Dose: 243 mg Documented by: [id number] Doxycycline Hyclate (Doxycycline Hyclate 100 Mg Cap) 100 mg PO NOW STA Stop: 09/14/20 21:18 Last Admin: 09/14/20 21:29 Dose: 100 mg Documented by: [id number] Medical Decision Making Differential Diagnosis Cardiac ischemia, aortic dissection, pulmonary embolism, pneumothorax, pneumonia, pericarditis, myocarditis, esophageal rupture, GERD, cholecystitis, pancreatitis, musculoskeletal, as well as other pathologies. Medical Records Attestation: I reviewed the patient's medical records. Home Medications Current Medication List: was personally reviewed by me Laboratory Data Attestation: I reviewed the patient's lab results. Result diagrams: 09/14/20 19:12 09/14/20 19:12 Lab Results 09/14/20 09/14/20 09/14/20 Range/Units 19:12 19:12 19:12 WBC 8.61 (4.8-10.8) K/uL RBC 4.02 L (4.7-6.1) M/uL Hgb 12.0 L (14.0-18.0) g/dL Hct 35.0 L (42-52) % MCV 87.1 (80-100) fL MCH 29.9 (25-34) pg MCHC 34.3 (32-36) g/dL RDW Std Deviation 42.1 (36.4-46.3) fL RDW Coeff of Brett 13.0 (11.5-14.5) % Plt Count 245 (130-400) K/uL MPV 9.6 (7.4-10.4) fL Immature Gran % (Auto) 0.2 % Neut % (Auto) 77.3 % Lymph % (Auto) 14.8 % [place] % (Auto) 6.0 % Eos % (Auto) 1.5 % Baso % (Auto) 0.2 % Neut # (Auto) 6.65 H (1.4-6.5) K/uL Lymph # (Auto) 1.27 (1.2-3.4) K/uL [place] # (Auto) 0.52 (0.11-0.59) K/uL Eos # (Auto) 0.13 (0-0.5) K/uL Baso # (Auto) 0.02 (0-0.2) K/uL Immature Gran # (Auto) 0.02 (0.00-0.02) K/uL APTT 25.4 (21.0-31.0) Seconds PTT Ratio 1.0 Sodium 134 L (136-145) mmol/L Potassium 4.3 (3.5-5.1) mmol/L Chloride 103 (98-107) mmol/L Carbon Dioxide 23 (21-32) mmol/L Anion Gap 8.0 (3-11) BUN 19 H (7-18) mg/dl Creatinine 1.32 (0.6-1.4) mg/dl Est Cr Clr Drug Dosing 58.9 ml/min Est GFR ( Amer) 62.9 ml/min Est GFR (Non-Af Amer) 54.3 ml/min BUN/Creatinine Ratio 14.7 (10-20) Glucose 204 H (70-99) mg/dl Calcium 8.9 (8.5-10.1) mg/dl Total Bilirubin 0.3 (0.2-1) mg/dl AST 13 L (15-37) U/L ALT 25 (12-78) U/L Alkaline Phosphatase 69 (45-117) U/L Troponin I 0.028 (0-0.045) ng/ml Total Protein 6.9 (6.4-8.2) gm/dl Albumin 3.7 (3.4-5.0) gm/dl Globulin 3.2 (2.5-4.0) gm/dl Albumin/Globulin Ratio 1.2 (0.9-2) Lipase 167 (73-393) U/L Lyme Disease IgG Ab (Negative) Lyme Disease IgM Ab (Negative) 09/14/20 09/14/20 Range/Units 19:12 20:44 WBC (4.8-10.8) K/uL RBC (4.7-6.1) M/uL Hgb (14.0-18.0) g/dL Hct (42-52) % MCV (80-100) fL MCH (25-34) pg MCHC (32-36) g/dL RDW Std Deviation (36.4-46.3) fL RDW Coeff of Brett (11.5-14.5) % Plt Count (130-400) K/uL MPV (7.4-10.4) fL Immature Gran % (Auto) % Neut % (Auto) % Lymph % (Auto) % [place] % (Auto) % Eos % (Auto) % Baso % (Auto) % Neut # (Auto) (1.4-6.5) K/uL Lymph # (Auto) (1.2-3.4) K/uL [place] # (Auto) (0.11-0.59) K/uL Eos # (Auto) (0-0.5) K/uL Baso # (Auto) (0-0.2) K/uL Immature Gran # (Auto) (0.00-0.02) K/uL APTT (21.0-31.0) Seconds PTT Ratio Sodium (136-145) mmol/L Potassium (3.5-5.1) mmol/L Chloride (98-107) mmol/L Carbon Dioxide (21-32) mmol/L Anion Gap (3-11) BUN (7-18) mg/dl Creatinine (0.6-1.4) mg/dl Est Cr Clr Drug Dosing ml/min Est GFR ( Amer) ml/min Est GFR (Non-Af Amer) ml/min BUN/Creatinine Ratio (10-20) Glucose (70-99) mg/dl Calcium (8.5-10.1) mg/dl Total Bilirubin (0.2-1) mg/dl AST (15-37) U/L ALT (12-78) U/L Alkaline Phosphatase (45-117) U/L Troponin I 0.038 (0-0.045) ng/ml Total Protein (6.4-8.2) gm/dl Albumin (3.4-5.0) gm/dl Globulin (2.5-4.0) gm/dl Albumin/Globulin Ratio (0.9-2) Lipase (73-393) U/L Lyme Disease IgG Ab Negative (Negative) Lyme Disease IgM Ab Equivocal A (Negative) Imaging Data Radiologist's Impression: Chest X-Ray 09/14/20 18:26 SINGLE VIEW CHEST CLINICAL HISTORY: Atypical chest pain. FINDINGS: 2 AP, portable, upright chest radiographs are compared to study dated 11/29/1910. The heart is top normal in size noting atherosclerotic calcification of the thoracic aorta. The pulmonary vasculature is noncongested. The lungs and pleural spaces are clear. No pneumothorax is seen. The skeletal structures are osteopenic. The bony thorax is grossly intact. IMPRESSION: No active disease in the chest. ACT 112: Negative or not required by law. Electronically signed by: Henry Ramirez M.D. 09/14/2020 8:30 PM ECG Data Attestation: I personally reviewed and interpreted this ECG as follows: Indication: + chest pain and + SOB/dyspnea Rate (beats per minute): 100 Rhythm: + normal sinus ECG Intervals/blocks: + Normal QT-c ECG [place]: + Normal ECG ST segments: + Normal ST segments ECG Findings: no PACs and no PVCs Comparison ECG Date: from (Nov 18, 2015) Change: the following changes noted (ventricular rate has increased by 33 bpm) Blood Pressure Blood Pressure Findings: Elevated blood pressure Blood Pressure Disposition: further management by hospitalist HAYDEN Narrative This patient was evaluated and appeared to be in no distress. IV access was obtained and lab work was drawn. PT was medicated with ASA po. An order for cardiac monitoring was placed and pt was noted to be in a NSR at 82 bpm. Pt is noted to be hypertensive, but took his cardizem [employer]. HR remains reasonable if at rest. Lab work reveals a negative but detectable troponin. Pt sx are concerning for an exertional angina and therefore a repeat 90 min trop was performed. This revealed a positive trend, but remained negative. Pt was pain free at rest. Pt did mention a recent tick bite and requested Lyme testing. This is IgM equivocal. Pt was given doxycycline 100 mg po. His case was d/w the hospitalist service for further management. Pt and are aware of the plan and agree. Impression & Plan Exertional dyspnea, Heart palpitations, Hypertension, Borderline Lyme serology Discharge Plan Visit Data Chief Complaint: Cardiac Assessment Stated Complaint: PALPITATIONS,RAPID HEART BEAT,HTN ED Provider: Annabelle Rhodes Discharge Problem: Exertional dyspnea, Heart palpitations, Hypertension, Borderline Lyme serology Forms Stand Alone Forms: [email or web address] Prescriptions Prescriptions: No Action terazosin 5 mg Capsule 10 mg PO PM RF: 0 atorvastatin [Lipitor] 10 mg Tablet 10 mg PO HS RF: 0 clonazepam 1 mg Tablet 1 mg PO BID RF: 0 metformin 850 mg Tablet 850 mg PO BID RF: 0 aspirin [Aspirin Low Dose] 81 mg Tablet,Delayed Release (Dr/Ec) 81 mg PO QAM RF: 0 alprazolam [Xanax] 0.5 mg Tablet 0.5 mg PO HS PRN (Reason: Anxiety) RF: 0 diltiazem HCl 300 mg Capsule,Extended Release 24hr 300 mg PO QPM RF: 0 nitroglycerin [Nitrostat] 0.4 mg Tablet, Sublingual 0.4 mg sublingual UD PRN (Reason: Angina) RF: 0 hydralazine 50 mg Tablet 50 mg PO BID RF: 0 lisinopril 40 mg Tablet 40 mg PO QAM RF: 0 glipizide 5 mg Tablet 5 mg PO BID RF: 0 Muscle Rub 15-10 % Cream 1 applic TOPICAL Q4H PRN (Reason: Muscle Pain) RF: 0 omeprazole 20 mg Tablet,Delayed Release (Dr/Ec) 20 mg PO DAILY RF: 0 cholecalciferol (vitamin D3) [Vitamin D3] 50 mcg (2,000 unit) Capsule 50 mcg PO QAM RF: 0 Discharge Problem: Hypertension Qualifiers: Hypertension type: unspecified Qualified Code(s): I10 - Essential (primary) hypertension
[2020-09-15] MEDS ORDERED: ONDANSETRON INJ 2 MG/ML 2 ML VIAL IV PRN (00:30)
[2020-09-15] MEDS ORDERED: CARBOHYDRATES FOR HYPOGLYCEMIA PO PRN (00:30)
[2020-09-15] MEDS ORDERED: ALPRAZolam 0.5 MG TABLET PO PRN (00:30)
[2020-09-15] MEDS ORDERED: ACETAMINOPHEN 325 MG TAB PO PRN (00:30)
[2020-09-15] MEDS ORDERED: DEXTROSE 50% 50 ML SYRINGE IV PRN (00:30)
[2020-09-15] MEDS ORDERED: GLUCOSE 10 TABS/TUBE PO PRN (00:30)
[2020-09-15] MEDS ORDERED: GLUCAGON FOR INJ 1 MG VIAL SQ PRN (00:30)
[2020-09-15] MEDS ORDERED: GLUCOSE 40% GEL 15 GM TUBE PO PRN (00:30)
[2020-09-15] MEDS: clonazePAM 1 MG TAB PO SCH ×2 (00:58→08:05)
[2020-09-15] MEDS: INSULIN GLARGINE SOLOSTAR 100 UNITS/ML 3 ML PEN SC SCH ×2 (00:58→08:06)
[2020-09-15 01:37] LABS: Magnesium 1.6 mg/dl (1.8-2.4); Phosphorus 2.2 mg/dl (2.5-4.9); Thyroid Stimulating Hormone 1.16 uIu/ml (0.300-4.500)
--- NOTE | 2020-09-15 06:23 | History & Physical Report ---
Date of Service September 14, 2020 Assessment & Plan (1) Heart palpitations: 69yo male presenting with 1.5 weeks of palpitations, elevated HR from baseline. EKG with NSR. Troponin is detectable although still within normal range. TSH WNL. Lyme is equivocal. -Telemetry monitoring -Mg repletion -Repeat troponin -Hold Hydralazine as may be contributing to tachycardia -Check orthostatic VS x 1 Present on Admission?: Yes (2) Hypertension: BP well controlled at present -Continue Diltiazem -Continue Lisinopril -Will hold Hydralazine for now, ?if contributing to tachycardia. Patient became hyponatremia while on HCTZ in the past. Baseline HR in 60's may preclude use of BB Present on Admission?: Yes (3) Borderline Lyme serology: Awaiting Western Blot assay -Doxycycline 100mg BID Present on Admission?: Yes (4) Diabetes: Chronic. VGJ=126 now -HOld oral agents -Lantus 8u BID -ISS -Goal blood sugar 100 - 140 -Check A1C Present on Admission?: Yes (5) Anxiety: Chronic -Continue Xanax PRN -Continue Clonazepam Present on Admission?: Yes (6) Anemia: Normochromic/normocytic. No active bleeding. Unknown baseline -Monitor CBC -?prior colonoscopy Present on Admission?: Yes (7) GERD (gastroesophageal reflux disease): Chronic -Continue Protonix F/E/N - Mg repletion, repeat labs in AM, AHA/CC diet as tolerated Ppx - Encourage ambulation Code - Full Dispo - Observation to medical Present on Admission?: Yes Admission and Anticipated Discharge Date Admission Date: September 14, 2020 History of Present Illness Chief Complaint: palpitations Primary Care Provider: NO PCP Ran Starr is a pleasant 69yo male with history of DM, HTN, GERD presenting with palpitations and elevated heart rate. Patient reports episodes of rapid heart rate over the last 1.5 weeks. He states that his HR is typically in the 60's, however, in the evenings specifically he has had rates in the 80's. He also reports rapid heart rate with minimal exertion - he ambulated to the bathroom today and his HR increased to the 120's. Palpitations are associated with lightheadedness. He thinks it is regular rhythm. He does feel pal pitations as well as pulsatile tinnitus on occasion. [facility]. He denies chest pain or tightness, denies cough or SOB, denies orthostatic complaints He was started on Hydralazine appx 3 weeks ago for blood pressure Allergies Allergy/AdvReac Type Severity Reaction Status Date / Time No Known Allergies Allergy Unverified 09/14/20 21:50 Home Medications Medication Instructions Recorded Confirmed Type alprazolam [Xanax] 0.5 mg PO HS PRN 09/14/20 09/14/20 History aspirin [Aspirin Low Dose] 81 mg PO QAM 09/14/20 09/14/20 History atorvastatin [Lipitor] 10 mg PO HS 09/14/20 09/14/20 History cholecalciferol (vitamin D3) 50 mcg PO QAM 09/14/20 09/14/20 History [Vitamin D3] clonazepam 1 mg PO BID 09/14/20 09/14/20 History diltiazem HCl 300 mg PO QPM 09/14/20 09/14/20 History glipizide 5 mg PO BID 09/14/20 09/14/20 History hydralazine 50 mg PO BID 09/14/20 09/14/20 History lisinopril 40 mg PO QAM 09/14/20 09/14/20 History metformin 850 mg PO BID 09/14/20 09/14/20 History methyl salicylate-menthol [Muscle 1 applic TOPICAL Q4H PRN 09/14/20 09/14/20 History Rub] nitroglycerin [Nitrostat] 0.4 mg SUBLINGUAL UD PRN 09/14/20 09/14/20 History omeprazole 20 mg PO DAILY 09/14/20 09/14/20 History terazosin 10 mg PO PM 09/14/20 09/14/20 History Past Med/Surg History Medical History (Updated 09/15/20 @ 06:47 by Ruth Bowers DO) Anxiety Diabetes GERD (gastroesophageal reflux disease) Hypertension Surgical History (Updated 09/15/20 @ 06:29 by Ruth Bowers DO) History of tonsillectomy Social History (Updated 09/14/20 @ 21:37 by Annabelle Rhodes MD) Smoking Status: Former smoker Tobacco Type: Cigarettes Second Hand Exposure: No; Do You Dip or Chew Tobacco: Yes; Hx Alcohol Use: No Hx Substance Use: No Preferred Language: Maltese Communication Ability: Effective 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 Beliefs That Will Affect Care: None marital status: Current Living Situation: Spouse Other Information That Helps Us Care for You: No Feels Safe at Home: Yes Safety Concerns: Feels Safe At This Time Assistive Devices: Glasses Review of Systems Review of Systems: All systems reviewed & are unremarkable except as noted in HPI & below Physical Exam Physical Exam: General: patient resting comfortably, NAD, non-toxic in ap pearance, AA&O x 4 Skin: warm, dry, intact, no rashes or lesions HEENT: NC/AT, PERRL, EOMI, anicteric sclera, conjunctiva without injection, external ear normal to inspection and nontender, nares patent, moist mucus membranes, dentition intact, no oropharyngeal lesions, neck supple, trachea midline, no LAD, no thyromegaly, no JVD Heart: +S1/S2, regular, no m/r/g Lungs: equal air entry bilaterally, no rales/rhonchi/wheezes Abd: +BS, soft, NT/ND, no masses/organomegaly/ascites Ext: warm, 2+ pulses in UE/LE bilaterally, no clubbing/cyanosis or edema Neuro: nonfocal, patient AA&O x 4, speech intact, no facial droop, moving all extremities on command with equal strength 5/5 Results & Data Results & Data ([facility]) Vital Signs (Past 12 Hours) Vital Signs Temp Pulse Pulse Resp BP BP BP 09/15/20 04:07 36.5 C 69 18 134/58 L 09/15/20 00:57 59 L 09/15/20 00:30 36.5 C 71 18 160/70 H 09/15/20 00:14 146/78 H 09/14/20 23:00 143/78 H 09/14/20 22:30 62 16 148/73 H 09/14/20 22:00 67 15 152/74 H 09/14/20 21:30 69 19 152/81 H 09/14/20 21:00 72 15 144/75 H 09/14/20 20:30 67 13 143/71 H 09/14/20 20:00 69 12 149/77 H 09/14/20 19:49 83 16 156/85 H 09/14/20 19:43 72 15 142/79 H 09/14/20 19:30 09/14/20 18:30 78 14 158/83 H 09/14/20 18:20 71 15 156/82 H Pulse Ox 09/15/20 04:07 95 09/15/20 00:57 09/15/20 00:30 97 09/15/20 00:14 09/14/20 23:00 09/14/20 22:30 94 09/14/20 22:00 94 09/14/20 21:30 96 09/14/20 21:00 95 09/14/20 20:30 95 09/14/20 20:00 96 09/14/20 19:49 95 09/14/20 19:43 96 09/14/20 19:30 96 09/14/20 18:30 95 09/14/20 18:20 96 Laboratory Results Laboratory Results WBC 8.61 K/uL (4.8-10.8) 09/14/20 19:12 RBC 4.02 M/uL (4.7-6.1) L 09/14/20 19:12 Hgb 12.0 g/dL (14.0-18.0) L 09/14/20 19:12 Hct 35.0 % (42-52) L 09/14/20 19:12 MCV 87.1 fL (80-100) 09/14/20 19:12 MCH 29.9 pg (25-34) 09/14/20 19:12 MCHC 34.3 g/dL (32-36) 09/14/20 19:12 RDW Std Deviation 42.1 fL (36.4-46.3) 09/14/20 19:12 RDW Coeff of Brett 13.0 % (11.5-14.5) 09/14/20 19:12 Plt Count 245 K/uL (130-400) 09/14/20 19:12 MPV 9.6 fL (7.4-10.4) 09/14/20 19:12 Immature Gran % (Auto) 0.2 % 09/14/20 19:12 Neut % (Auto) 77.3 % 09/14/20 19:12 Lymph % (Auto) 14.8 % 09/14/20 19:12 Hyde % (Auto) 6.0 % 09/14/20 19:12 Eos % (Auto) 1.5 % 09/14/20 19:12 Baso % (Auto) 0.2 % 09/14/20 19:12 Neut # (Auto) 6.65 K/uL (1.4-6.5) H 09/14/20 19:12 Lymph # (Auto) 1.27 K/uL (1.2-3.4) 09/14/20 19:12 Hyde # (Auto) 0.52 K/uL (0.11-0.59) 09/14/20 19:12 Eos # (Auto) 0.13 K/uL (0-0.5) 09/14/20 19:12 Baso # (Auto) 0.02 K/uL (0-0.2) 09/14/20 19:12 Immature Gran # (Auto) 0.02 K/uL (0.00-0.02) 09/14/20 19:12 APTT 25.4 Seconds (21.0-31.0) 09/14/20 19:12 PTT Ratio 1.0 09/14/20 19:12 Sodium 134 mmol/L (136-145) L 09/14/20 19:12 Potassium 4.3 mmol/L (3.5-5.1) 09/14/20 19:12 Chloride 103 mmol/L (98-107) 09/14/20 19:12 Carbon Dioxide 23 mmol/L (21-32) 09/14/20 19:12 Anion Gap 8.0 (3-11) 09/14/20 19:12 BUN 19 mg/dl (7-18) H 09/14/20 19:12 Creatinine 1.32 mg/dl (0.6-1.4) 09/14/20 19:12 Est Cr Clr Drug Dosing 58.9 ml/min 09/14/20 19:12 Est GFR ( Amer) 62.9 ml/min 09/14/20 19:12 Est GFR (Non-Af Amer) 54.3 ml/min 09/14/20 19:12 BUN/Creatinine Ratio 14.7 (10-20) 09/14/20 19:12 Glucose 204 mg/dl (70-99) H 09/14/20 19:12 POC Glucose 163 mg/dl (70-99) H 09/15/20 00:54 Calcium 8.9 mg/dl (8.5-10.1) 09/14/20 19:12 Phosphorus 2.2 mg/dl (2.5-4.9) L 09/14/20 19:12 Magnesium 1.6 mg/dl (1.8-2.4) L 09/14/20 19:12 Total Bilirubin 0.3 mg/dl (0.2-1) 09/14/20 19:12 AST 13 U/L (15-37) L 09/14/20 19:12 ALT 25 U/L (12-78) 09/14/20 19:12 Alkaline Phosphatase 69 U/L (45-117) 09/14/20 19:12 Troponin I 0.038 ng/ml (0-0.045) 09/14/20 20:44 Total Protein 6.9 gm/dl (6.4-8.2) 09/14/20 19:12 Albumin 3.7 gm/dl (3.4-5.0) 09/14/20 19:12 Globulin 3.2 gm/dl (2.5-4.0) 09/14/20 19:12 Albumin/Globulin Ratio 1.2 (0.9-2) 09/14/20 19:12 Lipase 167 U/L (73-393) 09/14/20 19:12 TSH 1.160 uIu/ml (0.300-4.500) 09/14/20 19:12 Lyme Disease IgG Ab Negative (Negative) 09/14/20 19:12 Lyme Disease IgM Ab Equivocal (Negative) A 09/14/20 19:12 COVID-19 Eval Order Covid19 at [facility] 09/14/20 21:28 SARS-CoV-2 (PCR) NEGATIVE (Negative) 09/14/20 21:28 Impressions Chest X-Ray 09/14/20 18:26 SINGLE VIEW CHEST CLINICAL HISTORY: Atypical chest pain. FINDINGS: 2 AP, portable, upright chest radiographs are compared to study dated 11/29/1910. The heart is top normal in size noting atherosclerotic calcification of the thoracic aorta. The pulmonary vasculature is noncongested. The lungs and pleural spaces are clear. No pneumothorax is seen. The skeletal structures are osteopenic. The bony thorax is grossly intact. IMPRESSION: No active disease in the chest. ACT 112: Negative or not required by law. Electronically signed by: Henry Ramirez M.D. 09/14/2020 8:30 PM ECG Additional Comments: NSR at 100, no ischemic changes PG Care Time/CCT Total # of Minutes Spent Total Time Spent with Patient: Total time spent is greater than 50% in coordination of care (as documented) at patient's floor/unit and/or counseling patient: Coding Level of Care Code 64820 OBS Care - Level 2 Diagnoses Heart palpitations R00.2 Hypertension I10 Hypertension type: unspecified Borderline Lyme serology R76.8 Diabetes E11.9 Diabetes mellitus type: type 2 Diabetes mellitus long term care administrator insulin use: without long term care administrator use Diabetes mellitus complication status: without complication Anxiety F41.9 Anemia D64.9 Anemia type: unspecified type GERD (gastroesophageal reflux disease) K21.9 Esophagitis presence: esophagitis presence not specified (1) Hypertension Hypertension type: unspecified Qualified Code(s): I10 - Essential (primary) hypertension (2) Diabetes Diabetes mellitus type: type 2 Diabetes mellitus alf insulin use: without alf use Diabetes mellitus complication status: without complication Qualified Code(s): E11.9 - Type 2 diabetes mellitus without complications (3) GERD (gastroesophageal reflux disease) Esophagitis presence: esophagitis presence not specified Qualified Code(s): K21.9 - Gastro-esophageal reflux disease without esophagitis (4) Anemia Anemia type: unspecified type Qualified Code(s): D64.9 - Anemia, unspecified
[2020-09-15 06:53] LABS: Basophils # (auto) 0.03 K/uL (0-0.2); Basophils % (auto) 0.4 %; Eosinophils # (auto) 0.23 K/uL (0-0.5); Eosinophils % (auto) 2.7 %; Hematocrit (blood only) 36.6 % (42-52); Hemoglobin 12.5 g/dL (14.0-18.0); Immature Granulocytes # (auto) 0.01 K/uL (0.00-0.02); Immature Granulocytes % (auto) 0.1 %; Lymphocytes # (auto) 1.89 K/uL (1.2-3.4); Lymphocytes % (auto) 22.6 %; Mean Corpuscular Hemoglobin 29.6 pg (25-34); Mean Corpuscular Hgb Conc 34.2 g/dL (32-36); Mean Corpuscular Volume 86.7 fL (80-100); Mean Platelet Volume 9.6 fL (7.4-10.4); Monocytes # (auto) 0.59 K/uL (0.11-0.59); Neutrophils # (auto) 5.62 K/uL (1.4-6.5); Neutrophils % (auto) 67.2 %; Platelet Count 305 K/uL (130-400); RDW Standard Deviation 41.5 fL (36.4-46.3); Red Blood Count 4.22 M/uL (4.7-6.1); White Blood Count 8.37 K/uL (4.8-10.8)
[2020-09-15] MEDS ORDERED: INSULIN ASPART 100 UNITS/ML 3 ML PEN SC SCH (07:30)
[2020-09-15 07:36] LABS: BUN Creatinine Ratio 11.5 (10-20); Blood Urea Nitrogen 14 mg/dl (7-18); Calcium 9.1 mg/dl (8.5-10.1); Carbon Dioxide 26 mmol/L (21-32); Chloride 106 mmol/L (98-107); Creatinine Clr Calc Pharmacy 62.8 ml/min; Est GFR (African American) 68.5 ml/min; Est GFR (Non-African American) 59.1 ml/min; Glucose 159 mg/dl (70-99); Magnesium 1.7 mg/dl (1.8-2.4); Potassium 4.3 mmol/L (3.5-5.1); Sodium 138 mmol/L (136-145)
[2020-09-15 07:40] LABS: Troponin I < 0.015 ng/ml (0-0.045)
[2020-09-15 07:58] LABS: Estimated Average Glucose 163 mg/dl; Hemoglobin A1C 7.3 % (4.5-5.6)
[2020-09-15] MEDS ORDERED: MAGNESIUM SULFATE / D5W 1 GM/100 ML BAG IV ONE (08:15)
[2020-09-15] MEDS ORDERED: PANTOprazole 40 MG TAB PO SCH (09:00)
[2020-09-15] MEDS ORDERED: lisinopril 40 MG TAB PO SCH (09:00)
[2020-09-15] MEDS ORDERED: DOXYCYCLINE HYCLATE 100 MG CAP PO SCH (09:00)
[2020-09-15] MEDS ORDERED: ASPIRIN 81 MG ECTAB PO SCH (09:00)
[2020-09-15] MEDS ORDERED: metFORMIN HCL 850 MG TAB PO SCH (10:15)
[2020-09-15] MEDS ORDERED: glipiZIDE 5 MG TAB PO SCH (10:15)
--- NOTE | 2020-09-15 13:37 | Discharge Summary ---
Date of Service September 15, 2020 Admission HPI Per Admitting Provider Ran Starr is a pleasant 69yo male with history of DM, HTN, GERD presenting with palpitations and elevated heart rate. Patient reports episodes of rapid heart rate over the last 1.5 weeks. He states that his HR is typically in the 60's, however, in the evenings specifically he has had rates in the 80's. He also reports rapid heart rate with minimal exertion - he ambulated to the bathroom today and his HR increased to the 120's. Palpitations are associated with lightheadedness. He thinks it is regular rhythm. He does feel palpitations as well as pulsatile tinnitus on occasion. [facility]. He denies chest pain or tightness, denies cough or SOB, denies orthostatic complaints He was started on Hydralazine appx 3 weeks ago for blood pressure Principal Diagnosis Palpitations Discharge Exam Constitutional WD/WN, vitals as above Eyes + anicteric sclerae; normal pupil size ENMT external ear and nose normal, oropharynx normal Neck trachea midline, no thyromegaly Respiratory normal respiratory effort, lungs clear to auscultation Cardiovascular RRR, no murmur, no edema Gastrointestinal (Abdomen) normal bowel sounds, soft, nontender, no hepatosplenomegaly Musculoskeletal no cyanosis or clubbing, extremities motor strength 5/5 Skin no rashes, warm and dry Neurologic moves all extremities and awake; not confused Psychiatric A+Ox3, euthymic affect Discharge Data Allergies Allergy/AdvReac Type Severity Reaction Status Date / Time No Known Allergies Allergy Unverified 09/14/20 21:50 Consultations 09/14/20 21:52 ED Decision to Admit Stat Hospital Course (1) Heart palpitations: Ran Starr is a 70 year old male observed at [facility] from September 14-2020 due to palpitations. No chest pain or shortness of breath on exertion. No arrhythmia was seen on telemetry or EKG. Serial troponins were within normal limits. Recommend following up with your primary care physician to organize a 14 or 30 day event monitor. Given possible side effect from recently prescribed hydralazine this was discontinued. Diltiazem increased to total 360mg/day with 12 hour delayed release tablets to better control your heart rate. He also had a lyme antibody test which was negative for IgG but equivocal for IgM. Given non-specific symptoms recommend treating this with doxycycline 14 day course as prescribed below. Recommended he follows up with his PCP for full results of this. (2) Hypertension: (3) Borderline Lyme serology: (4) Diabetes: (5) Anxiety: (6) Anemia: (7) GERD (gastroesophageal reflux disease): Total Time Total Time Spent Total Time Spent (In Minutes): 45 Discharge Plan Discharge Items Patient Disposition: Home - Self-Care Reason For Visit: PALPITATIONS Discharge Diagnosis: Palpitations Activity: Resume your previous activity Non-emergency contact: Primary Care Provider Call non-emergency contact if: you have any medication questions and your symptoms worsen Follow-up/Referrals: PCP,NO [Primary Care Provider] - Diet: Carb Consistent or DM2 Addtl Attending Provider Instructions: You were observed at [facility] on September 14, 2020 due to palpitations. No chest pain or shortness of breath on exertion. No arrhythmia was seen on telemetry or EKG. Serial troponins were within normal limits. Recommend following up with your primary care physician to organize a 14 or 30 day event monitor. Given possible side effect from recently prescribed hydralazine this was discontinued. Will increase your diltiazem to total 360mg/day with 12 hour delayed release tablets to better control your heart rate. You also had a lyme antibody test which was negative for IgG but equivocal for IgM. Given non-specific symptoms recommend treating this with doxycycline 14 day course as prescribed below. Please follow up with your primary care physician for full results of this. Pending Studies at Discharge: Yes Stand-Alone Forms: [facility], Smoking Cessation Medications and DC Order Prescriptions: New diltiazem HCl 120 mg capsule,extended release 12 hr 240 mg PO QPM 30 Days Qty: 60 RF: 0 diltiazem HCl 120 mg capsule,extended release 12 hr 120 mg PO QAM 30 Days Qty: 30 RF: 0 Continued terazosin 5 mg Capsule 10 mg PO PM RF: 0 atorvastatin [Lipitor] 10 mg Tablet 10 mg PO HS RF: 0 clonazepam 1 mg Tablet 1 mg PO BID RF: 0 metformin 850 mg Tablet 850 mg PO BID RF: 0 aspirin [Aspirin Low Dose] 81 mg Tablet,Delayed Release (Dr/Ec) 81 mg PO QAM RF: 0 alprazolam [Xanax] 0.5 mg Tablet 0.5 mg PO HS PRN (Reason: Anxiety) RF: 0 nitroglycerin [Nitrostat] 0.4 mg Tablet, Sublingual 0.4 mg sublingual UD PRN (Reason: Angina) RF: 0 lisinopril 40 mg Tablet 40 mg PO QAM RF: 0 glipizide 5 mg Tablet 5 mg PO BID RF: 0 Muscle Rub 15-10 % Cream 1 applic TOPICAL Q4H PRN (Reason: Muscle Pain) RF: 0 omeprazole 20 mg Tablet,Delayed Release (Dr/Ec) 20 mg PO DAILY RF: 0 cholecalciferol (vitamin D3) [Vitamin D3] 50 mcg (2,000 unit) Capsule 50 mcg PO QAM RF: 0 Discontinued diltiazem HCl 300 mg Capsule,Extended Release 24hr 300 mg PO QPM RF: 0 hydralazine 50 mg Tablet 50 mg PO BID RF: 0 Discharge Orders: Discharge Order (Routine); Ordered 09/15/20 Ordered By: Tyron Springer/Other Patient Handouts: A1C, Managing Type 2 Diabetes Admission Data Admit Date/Time: 09/14/20 23:17 Attending Provider: Tyron Lizama Admit Provider: Ruth Bowers Primary Care Provider: PCP,NO Other Interventions: Discharge Summary Assessment (RN) Last Done: 09/15/20 13:51 Coding Level of Care Code 56672 OBS Care - Discharge Diagnoses Heart palpitations R00.2 Hypertension I10 Hypertension type: unspecified Borderline Lyme serology R76.8 Diabetes E11.9 Diabetes mellitus complication status: without complication Diabetes mellitus intermission coordinator insulin use: without longterm use Diabetes mellitus type: type 2 Anxiety F41.9 Anemia D64.9 Anemia type: unspecified type GERD (gastroesophageal reflux disease) K21.9 Esophagitis presence: esophagitis presence not specified
[2020-09-15] MEDS ORDERED: TERAZOSIN HCL 5 MG CAP PO SCH (21:00)
[2020-09-15] MEDS ORDERED: dilTIAZem HCL 300 MG CAPCR PO SCH (21:00)
[2020-09-15] MEDS ORDERED: ATORVASTATIN 10 MG TAB PO SCH (21:00)
--- NOTE | 2020-09-16 05:46 | Electrocardiogram Report ---
Test Reason : Blood Pressure : / mmHG Vent. Rate : 100 BPM Atrial Rate : 100 BPM P-R Int : 186 ms QRS Dur : 086 ms QT Int : 338 ms P-R-T Axes : 062 035 072 degrees QTc Int : 436 ms Normal sinus rhythm Normal ECG When compared with ECG of 18-NOV-2015 16:57, Vent. rate has increased BY 33 BPM Confirmed by Nikolai Hampton ([id number]) on 09/16/2020 5:46:22 AM Referred By: REFERRED SELF Confirmed By:Nikolai Hampton
[2020-09-20 17:32] LABS: 18KDIGG Band NON-REACTIVE; 23KDIGG Band NON-REACTIVE; 23KDIGM Band REACTIVE; 28KDIGG Band NON-REACTIVE; 30KDIGG Band NON-REACTIVE; 39KDIGG Band NON-REACTIVE; 39KDIGM Band NON-REACTIVE; 41KDIGG Band REACTIVE; 41KDIGM Band NON-REACTIVE; 45KDIGG Band REACTIVE; 58KDIGG Band NON-REACTIVE; 66KDIGG Band NON-REACTIVE; 93KDIGG Band NON-REACTIVE; Lyme Antibodies, WB IgG NEGATIVE (NEGATIVE); Lyme Antibodies, WB IgM NEGATIVE (NEGATIVE)
== END 2020-09-15 14:15 | disposition home or self-care (01) ==
LOC: 2W 15:51 → ED 15:51 → SUATTDRO 23:17 → 2W 09-15 00:14
DX: Z79.899 Other long term (current) drug therapy; R00.2 Palpitations; Z87.891 Personal history of nicotine dependence; R76.8 Other specified abnormal immunological findings in serum; I10 Essential (primary) hypertension; Z79.84 Long term (current) use of oral hypoglycemic drugs; E11.9 Type 2 diabetes mellitus without complications; K21.9 Gastro-esophageal reflux disease without esophagitis; D64.9 Anemia, unspecified; F41.9 Anxiety disorder, unspecified; Z79.82 Long term (current) use of aspirin

== ENCOUNTER 2023-10-04 18:04 | Observation (INO) ==
[2023-10-04 18:58] LABS: Hemoglobin 11.9 g/dl (14.0-18.0); Mean Corpuscular Hemoglobin 28.7 pg (25.0-34.0); Mean Corpuscular Volume 84.5 fL (80.0-100.0); Mean Platelet Volume 9.5 fL (9.4-12.4); Platelet Count 342 K/uL (130-400); RDW Coefficient of Variation 12.8 % (11.5-14.5); RDW Standard Deviation 39.4 fL (36.4-46.3); Red Blood Count 4.14 M/uL (4.70-6.10); White Blood Count 17.02 K/ul (4.8-10.8)
[2023-10-04 19:17] LABS: Basophils # (auto) 0.05 K/uL (0.00-0.20); Basophils % (auto) 0.3 %; Eosinophils # (auto) 0.07 K/uL (0.00-0.50); Eosinophils % (auto) 0.4 %; Immature Granulocytes # (auto) 0.06 K/uL (0.01-0.20); Immature Granulocytes % (auto) 0.4 %; Lymphocytes # (auto) 0.58 K/uL (1.20-3.40); Lymphocytes % (auto) 3.4 %; Monocytes # (auto) 0.64 K/uL (0.11-0.59); Monocytes % (auto) 3.8 %; Neutrophils # (auto) 15.62 K/uL (1.40-6.50); Neutrophils % (auto) 91.7 %
[2023-10-04 19:18] LABS: Albumin Globulin Ratio 1.5 (0.9-2); Albumin Level 4.7 gm/dl (3.4-5.0); Bilirubin,Total 0.4 mg/dl (0.2-1.0); Calcium 10.2 mg/dl (8.6-10.3); Creatinine Clr Calc Pharmacy 32.6 ml/min; Est GFR (African American) 33.5 ml/min; Est GFR (Non-African American) 28.9 ml/min; Globulin 3.1 gm/dl (2.5-4.0); Potassium 4.3 mmol/L (3.5-5.1); Total Protein 7.8 gm/dl (6.0-8.3)
[2023-10-04 19:27] LABS: Appearance Urine Clear (Clear); Bacteria Urine Automated None Seen (None Seen); Bilirubin Urine Negative (Negative); Blood Urine Negative (Negative); Cast Urine Automated 0-2 /lpf (0-2); Color Urine Yellow; Epithelial Cell Urine Auto 0-2 /hpf (0-2); Glucose Urine UA 1+ (Negative); Ketones Urine Negative (Negative); Leukocyte Esterase Urine Negative (Negative); Nitrite Urine Negative (Negative); Protein Urine 2+ (Negative); RBC Urine Automated 0-2 /hpf (0-2); Specific Gravity Urine 1.013 (1.000-1.030); Urobilinogen Urine Negative (Negative); WBC Urine Automated 0-5 /hpf (0-5); pH Urine 5.5 (4.5-7.5)
--- NOTE | 2023-10-04 20:15 | Emergency Department Note ---
Impression & Plan Fecal impaction ED Provider Note NAME: DALLAS VILLAR AGE: 73 SEX: M : 1950 ARRIVES VIA: Walk-In INFORMANT: Patient, ED PROVIDER(S): Isaiah Olsen MD CHIEF COMPLAINT: Constipation HPI: This is a 73-year-old male present for constipation/inability urinate. Patient states that he feels like he is "plugged up "and has an impaction. He notes is not the first time this has happened. He notes that he has tried stool softeners, laxative, prune juice and an enema without relief. He notes he had to use a glove and pick out small bits of stool today in his rectum. He otherwise states he is having difficulty urinating due to his large stool ball. He notes abdominal pain that is minimal but it is uncomfortable. He notes suprapubic pressure. ROS: See above HPI for pertinent positives & negatives. A total of 10 systems reviewed and were otherwise negative. PHYSICAL EXAMINATION: General: resting comfortably in no acute distress Head: Normocephalic and atraumatic Eyes: Normal inspection, extraocular muscles intact Ear, nose, throat: Normal external exam Neck: Normal range of motion Respiratory: lungs clear to auscultation bilaterally Cardiovascular: Regular rate/rhythm, no murmur GI: soft, nontender, no guarding or rebound Extremities: nontender, moves all extremities Neuro: The patient awake and alert, appropriately conversive, no focal deficits, symmetric faces Skin: Warm, dry, and intact MEDICAL DECISION MAKING: This is 73-year-old male presenting for constipation/inability urinate. Patient was straight cath with relief of his suprapubic discomfort. Will do CT imaging to help elucidate further etiology of this SBO versus constipation versus impaction. -CT imaging does reveal signs of impaction with bowel wall thickening. Will do a disimpaction at this time. -I did perform manual rectal disimpaction. Loose stool was noted with mild around able to remove. Patient without active fully tolerated the procedure and requested I stop. -Due to the persistent impaction and bowel thickening, will admit for further workup. Differential diagnosis: See above ER treatment provided: See below Diagnostics interpreted by me: ECG: None Cardiac Monitoring: An order was placed for continuous cardiac monitoring. The monitor shows a rate of 82 with sinus rhythm. Laboratory studies: As stated above and show below. Imaging studies: See below. Past Med/Surg History Problem List (Updated 10/06/23 @ 00:34 by Isaiah Olsen MD) Fecal impaction (Acute) Type 2 diabetes mellitus Urinary retention Fecal impaction PTSD (post-traumatic stress disorder) CKD (chronic kidney disease) stage 3, GFR 30-59 ml/min Recurrent spontaneous pneumothorax Ex-smoker Anemia GERD (gastroesophageal reflux disease) Diabetes Anxiety Exertional dyspnea (Acute) Heart palpitations (Acute) Hypertension (Acute) Borderline Lyme serology (Acute) Cyst of thyroid (Chronic 12/08/10) Hyponatremia (Chronic 12/08/10) Medical History (Updated 10/06/23 @ 00:34 by Isaiah Olsen MD) Hypertension Surgical History (Updated 09/15/20 @ 06:29 by Ruth Bowers DO) History of tonsillectomy Social History (Updated 07/03/23 @ 09:58 by Nanci Liao LPN) Smoking Status: Former smoker Tobacco Type: Cigarettes and Smokeless Tobacco (Dip or Chew) Age Started Using Tobacco: 6; Age Quit Using Tobacco: 37; Second Hand Exposure: No; Do You Dip or Chew Tobacco: Yes; Tobacco Cessation Education Requested by Patient: No Hx Alcohol Use: No Hx Substance Use: No Preferred Language: Kyrgyz Communication Ability: Effective Tree Specialist Required: No Beliefs That Will Affect Care: None marital status: Current Living Situation: Spouse Other Information That Helps Us Care for You: No Feels Safe at Home: Yes Safety Concerns: Feels Safe At This Time Assistive Devices: CPAP Allergies Allergies Allergy/AdvReac Type Severity Reaction Status Date / Time No Known Allergies Allergy Verified 10/04/23 19:46 Home Meds Home Medications Medication Instructions Recorded Confirmed aspirin 81 mg tablet,delayed 81 mg PO QAM 09/14/20 10/04/23 release (David Low Dose Aspirin) clonazepam 1 mg tablet 1 mg PO HS 09/14/20 10/04/23 lisinopril 40 mg tablet 40 mg PO QAM 09/14/20 10/04/23 methyl salicylate 15 %-menthol 10 1 applic topical Q4H PRN Muscle 09/14/20 10/04/23 % topical cream (Muscle Rub) Pain nitroglycerin 0.4 mg sublingual 0.4 mg sublingual UD PRN Angina 09/14/20 10/04/23 tablet (Nitrostat) terazosin 5 mg capsule 10 mg PO HS 09/14/20 10/04/23 atorvastatin 10 mg tablet (Lipitor) 40 mg PO HS 07/03/23 10/04/23 omeprazole 20 mg tablet,delayed 20 mg PO Q OTHER DAY 07/03/23 10/04/23 release clonidine HCl 0.1 mg tablet 0.1 mg PO BID 10/04/23 10/04/23 diltiazem HCl 120 mg tablet 120 mg PO BID 10/04/23 10/04/23 docusate sodium 100 mg capsule 100 mg PO BID 10/04/23 10/04/23 ferrous sulfate 325 mg (65 mg 325 mg PO DAILY 10/04/23 10/04/23 iron) tablet magnesium oxide 420 mg tablet 420 mg PO DAILY 10/04/23 10/04/23 metformin 500 mg tablet 500 mg PO BID 10/04/23 10/04/23 [id number] 1 tab PO DAILY 10/04/23 10/04/23 tablet (Multivitamin 50 Plus tablet) semaglutide 0.25 mg or 0.5 mg (2 0.5 mg subcut WK 10/04/23 10/04/23 mg/3 mL) subcutaneous pen injector (Ozempic) vitamin B complex 1 cap PO DAILY 10/04/23 10/04/23 Previous Rx's Medication Instructions Recorded albuterol sulfate 90 mcg/actuation 2 puff inhalation Q6H PRN 07/10/23 aerosol inhaler Shortness Of Breath Or Wheezing #18 grams Results & Data (ED) Vital Signs Vital Signs - 24 hr 10/04/23 18:13 10/04/23 20:25 10/04/23 23:06 Temperature 36.8 C Temperature Source Temporal Artery Scan Pulse Rate 104 H Pulse Rate [Finger] 92 H 74 Respiratory Rate 20 20 16 Respiratory Effort / Characteristics Non-Labored Spontaneous Non-Labored Spontaneous Non-Labored Spontaneous Respiratory Depth Normal Normal Normal Respiratory Pattern Regular Regular Blood Pressure 188/90 H Blood Pressure [Right Arm] 186/88 H 169/89 H Blood Pressure Mean 122 Blood Pressure Mean [Right Arm] 120 115 Blood Pressure Position [Right Arm] Sitting Pulse Oximetry 96 96 95 Oxygen Delivery Method Room Air Room Air Room Air Sepsis Recent Fever Within 48 Hours No Sepsis New/Unexplained Change in Mental Status N/A Sepsis Action Taken by Nursing No Action Required Laboratory Data 10/05/23 07:10 10/05/23 07:10 Lab Results 10/04/23 10/04/23 10/04/23 Range/Units 18:38 18:43 20:44 WBC 17.02 H (4.8-10.8) K/ul RBC 4.14 L (4.70-6.10) M/uL Hgb 11.9 L (14.0-18.0) g/dl POC Hgb 12.6 L (14.0-18.0) g/dl Hct 35.0 L (42.0-52.0) % POC Hct 37 L (42-52) % MCV 84.5 (80.0-100.0) fL MCH 28.7 (25.0-34.0) pg MCHC 34.0 (32.0-36.0) g/dL RDW Std Deviation 39.4 (36.4-46.3) fL RDW Coeff of Brett 12.8 (11.5-14.5) % Plt Count 342 (130-400) K/uL MPV 9.5 (9.4-12.4) fL Immature Gran % (Auto) 0.4 % Neut % (Auto) 91.7 % Lymph % (Auto) 3.4 % [place] % (Auto) 3.8 % Eos % (Auto) 0.4 % Baso % (Auto) 0.3 % Neut # (Auto) 15.62 H (1.40-6.50) K/uL Lymph # (Auto) 0.58 L (1.20-3.40) K/uL [place] # (Auto) 0.64 H (0.11-0.59) K/uL Eos # (Auto) 0.07 (0.00-0.50) K/uL Baso # (Auto) 0.05 (0.00-0.20) K/uL Immature Gran # (Auto) 0.06 (0.01-0.20) K/uL POC Sodium 132 L (135-144) mmol/L Sodium 132 L (136-145) mmol/L POC Potassium 4.3 (3.3-5.0) mmol/L Potassium 4.3 (3.5-5.1) mmol/L POC Chloride 99 L (101-112) mmol/L Chloride 98 (98-107) mmol/L Carbon Dioxide 21 (21-32) mmol/L POC Total CO2 19 L (24-31) mmol/L Anion Gap 13 H (3-11) POC Anion Gap 19.0 (16-25) mmol/L POC BUN 22 H (7-18) mg/dl BUN 26 H (6-23) mg/dl Creatinine 2.17 H (0.6-1.4) mg/dl POC Creatinine TNP Est Cr Clr Drug Dosing 32.6 ml/min Est GFR ( Amer) 33.5 ml/min Est GFR (Non-Af Amer) 28.9 ml/min BUN/Creatinine Ratio 12.0 (10-20) Glucose 285 H (70-99(Fasting)) mg/dl POC Glucose 227 H (70-99) mg/dl POC Glucose (other) 283 H (70-99) mg/dl Calcium 10.2 (8.6-10.3) mg/dl POC Ioniz Calcium Danny 1.18 (1.12-1.32) mmol/l Total Bilirubin 0.4 (0.2-1.0) mg/dl AST 16 (13-39) U/L ALT 16 (7-52) U/L Alkaline Phosphatase 63 (34-104) U/L Total Protein 7.8 (6.0-8.3) gm/dl Albumin 4.7 (3.4-5.0) gm/dl Globulin 3.1 (2.5-4.0) gm/dl Albumin/Globulin Ratio 1.5 (0.9-2) Urine Color Urine Appearance (Clear) Urine pH (4.5-7.5) Ur Specific Mccoy (1.000-1.030) Urine Protein (Negative) Urine Glucose (UA) (Negative) Urine Ketones (Negative) Urine Blood (Negative) Urine Nitrite (Negative) Urine Bilirubin (Negative) Urine Urobilinogen (Negative) Ur Leukocyte Esterase (Negative) Urine WBC (Auto) (0-5) /hpf Urine RBC (Auto) (0-2) /hpf U Hyaline Cast (Auto) (0-2) /lpf U Epithel Cells (Auto) (0-2) /hpf Urine Bacteria (Auto) (None Seen) 10/04/23 Range/Units Unknown WBC (4.8-10.8) K/ul RBC (4.70-6.10) M/uL Hgb (14.0-18.0) g/dl POC Hgb (14.0-18.0) g/dl Hct (42.0-52.0) % POC Hct (42-52) % MCV (80.0-100.0) fL MCH (25.0-34.0) pg MCHC (32.0-36.0) g/dL RDW Std Deviation (36.4-46.3) fL RDW Coeff of Brett (11.5-14.5) % Plt Count (130-400) K/uL MPV (9.4-12.4) fL Immature Gran % (Auto) % Neut % (Auto) % Lymph % (Auto) % [place] % (Auto) % Eos % (Auto) % Baso % (Auto) % Neut # (Auto) (1.40-6.50) K/uL Lymph # (Auto) (1.20-3.40) K/uL [place] # (Auto) (0.11-0.59) K/uL Eos # (Auto) (0.00-0.50) K/uL Baso # (Auto) (0.00-0.20) K/uL Immature Gran # (Auto) (0.01-0.20) K/uL POC Sodium (135-144) mmol/L Sodium (136-145) mmol/L POC Potassium (3.3-5.0) mmol/L Potassium (3.5-5.1) mmol/L POC Chloride (101-112) mmol/L Chloride (98-107) mmol/L Carbon Dioxide (21-32) mmol/L POC Total CO2 (24-31) mmol/L Anion Gap (3-11) POC Anion Gap (16-25) mmol/L POC BUN (7-18) mg/dl BUN (6-23) mg/dl Creatinine (0.6-1.4) mg/dl POC Creatinine Est Cr Clr Drug Dosing ml/min Est GFR ( Amer) ml/min Est GFR (Non-Af Amer) ml/min BUN/Creatinine Ratio (10-20) Glucose (70-99(Fasting)) mg/dl POC Glucose (70-99) mg/dl POC Glucose (other) (70-99) mg/dl Calcium (8.6-10.3) mg/dl POC Ioniz Calcium Danny (1.12-1.32) mmol/l Total Bilirubin (0.2-1.0) mg/dl AST (13-39) U/L ALT (7-52) U/L Alkaline Phosphatase (34-104) U/L Total Protein (6.0-8.3) gm/dl Albumin (3.4-5.0) gm/dl Globulin (2.5-4.0) gm/dl Albumin/Globulin Ratio (0.9-2) Urine Color Yellow Urine Appearance Clear (Clear) Urine pH 5.5 (4.5-7.5) Ur Specific Mccoy 1.013 (1.000-1.030) Urine Protein 2+ H (Negative) Urine Glucose (UA) 1+ H (Negative) Urine Ketones Negative (Negative) Urine Blood Negative (Negative) Urine Nitrite Negative (Negative) Urine Bilirubin Negative (Negative) Urine Urobilinogen Negative (Negative) Ur Leukocyte Esterase Negative (Negative) Urine WBC (Auto) 0-5 (0-5) /hpf Urine RBC (Auto) 0-2 (0-2) /hpf U Hyaline Cast (Auto) 0-2 (0-2) /lpf U Epithel Cells (Auto) 0-2 (0-2) /hpf Urine Bacteria (Auto) None Seen (None Seen) Administered Medications Discontinued Medications Clonazepam (Clonazepam 1 Mg Tab) 1 mg PO ONCE STA Stop: 10/05/23 10:25 Last Admin: 10/05/23 10:32 Dose: 1 mg Documented By: LUCIA Clonidine HCl (Clonidine Hcl 0.1 Mg Tab) 0.1 mg PO BID [facility] Stop: 11/04/23 08:59 Last Admin: 10/05/23 09:05 Dose: 0.1 mg Documented By: LUCIA Diltiazem HCl (Diltiazem Hcl 60 Mg Tab) 120 mg PO BID [facility] Stop: 11/04/23 08:59 Last Admin: 10/05/23 09:05 Dose: 120 mg Documented By: LUCIA Lactated Ringer's (Lr) 1,000 mls @ 125 mls/hr IV .Q8H [facility] Stop: 10/05/23 17:30 Last Admin: 10/05/23 09:57 Dose: 125 mls/hr Documented By: Infusion: 10/05/23 09:57 Dose: Infused Documented By: Infusion: 10/05/23 06:29 Dose: 0 mls/hr Documented By: Admin: 10/05/23 02:02 Dose: 125 mls/hr Documented By: EFFIE Lisinopril (Lisinopril 40 Mg Tab) 40 mg PO QAM MANNY Stop: 11/04/23 08:59 Last Admin: 10/05/23 09:06 Dose: 40 mg Documented By: LUCIA Magnesium Citrate (Magnesium Citrate 296 Ml/Btl) 296 ml PO NOW STA Stop: 10/04/23 19:50 Last Admin: 10/04/23 20:26 Dose: 296 ml Documented By: ANA Pantoprazole Sodium (Pantoprazole 40 Mg Tab) 40 mg PO Q2D MANNY Stop: 11/04/23 08:59 Last Admin: 10/05/23 09:05 Dose: 40 mg Documented By: LUCIA Polyethylene Glycol (Polyethylene (Miralax) 17 Gm Pack) 17 gm PO TID MANNY Stop: 11/04/23 08:59 Last Admin: 10/05/23 09:09 Dose: 17 gm Documented By: LUCIA Imaging Data Radiologist's Impression: Abdomen/Pelvis CT 10/04/23 18:57 Exam(s): CT ABDOMEN + PELVIS Without Contrast EXAM: CT Abdomen and Pelvis Without Intravenous Contrast CLINICAL HISTORY: Reason for exam: SBO vs urinary outlet obstruction vs constipation. TECHNIQUE: Axial computed tomography images of the abdomen and pelvis without intravenous contrast. CTDI is 24.57 mGy and DLP is 1346.2 mGy-cm. Automated exposure control was utilized for the study. A dose lowering technique was utilized adhering to the principles of ALARA. COMPARISON: No relevant prior studies available. FINDINGS: Lung bases: Unremarkable. No mass. No consolidation. Heart: Coronary atherosclerosis. No cardiomegaly. ABDOMEN: Liver: Unremarkable. Gallbladder and bile ducts: Unremarkable. No calcified stones. No ductal dilation. Pancreas: Unremarkable. No ductal dilation. Spleen: Unremarkable. No splenomegaly. Adrenals: Unremarkable. No mass. Kidneys and ureters: No hydronephrosis. Punctate nonobstructing parenchymal calcification upper pole right kidney. Otherwise, no stones. Simple bilateral renal cysts measuring up to 3 cm on the right; no further follow-up required. Stomach and bowel: Diverticulosis without diverticulitis. No bowel obstruction. Moderate rectal stool burden with mild rectal wall thickening and perirectal stranding. PELVIS: Appendix: Normal appendix. Bladder: Unremarkable. No stones. Reproductive: Unremarkable as visualized. ABDOMEN and PELVIS: Intraperitoneal space: Unremarkable. No free air, significant free fluid, or fluid collection. Bones/joints: Left gilbert-transitional lumbosacral anatomy. Age-related degenerative changes of the spine. No acute fracture or dislocation. Soft tissues: Unremarkable. Vasculature: Aortoiliac and mesenteric arterial atherosclerosis. No aortic aneurysm. Lymph nodes: Unremarkable. No enlarged lymph nodes. IMPRESSION: Moderate rectal stool burden with mild rectal wall thickening and perirectal stranding. Finding suggests constipation, with proctitis not excluded. Electronically signed by: Galindo Melissa M.D. 10/04/23 21:24 PM Discharge Plan Visit Data Chief Complaint: Unable to Void Stated Complaint: IMPACTED BOWEL, CONSTIPATION, UNABLE TO VOID ED Provider: Isaiah Olsen Discharge Problem: Fecal impaction Patient Disposition: Admitted As Inpatient Condition: Good Discharge Instructions Interventions: ED Discharge Assessment Last Done: 10/05/23 01:31
[2023-10-04] MEDS: MAGNESIUM CITRATE 296 ML/BTL PO STA (20:26)
--- NOTE | 2023-10-04 21:25 | CT Scan Report ---
Exam(s): CT ABDOMEN + PELVIS Without Contrast EXAM: CT Abdomen and Pelvis Without Intravenous Contrast CLINICAL HISTORY: Reason for exam: SBO vs urinary outlet obstruction vs constipation. TECHNIQUE: Axial computed tomography images of the abdomen and pelvis without intravenous contrast. CTDI is 24.57 mGy and DLP is 1346.2 mGy-cm. Automated exposure control was utilized for the study. A dose lowering technique was utilized adhering to the principles of ALARA. COMPARISON: No relevant prior studies available. FINDINGS: Lung bases: Unremarkable. No mass. No consolidation. Heart: Coronary atherosclerosis. No cardiomegaly. ABDOMEN: Liver: Unremarkable. Gallbladder and bile ducts: Unremarkable. No calcified stones. No ductal dilation. Pancreas: Unremarkable. No ductal dilation. Spleen: Unremarkable. No splenomegaly. Adrenals: Unremarkable. No mass. Kidneys and ureters: No hydronephrosis. Punctate nonobstructing parenchymal calcification upper pole right kidney. Otherwise, no stones. Simple bilateral renal cysts measuring up to 3 cm on the right; no further follow-up required. Stomach and bowel: Diverticulosis without diverticulitis. No bowel obstruction. Moderate rectal stool burden with mild rectal wall thickening and perirectal stranding. PELVIS: Appendix: Normal appendix. Bladder: Unremarkable. No stones. Reproductive: Unremarkable as visualized. ABDOMEN and PELVIS: Intraperitoneal space: Unremarkable. No free air, significant free fluid, or fluid collection. Bones/joints: Left gilbert-transitional lumbosacral anatomy. Age-related degenerative changes of the spine. No acute fracture or dislocation. Soft tissues: Unremarkable. Vasculature: Aortoiliac and mesenteric arterial atherosclerosis. No aortic aneurysm. Lymph nodes: Unremarkable. No enlarged lymph nodes. IMPRESSION: Moderate rectal stool burden with mild rectal wall thickening and perirectal stranding. Finding suggests constipation, with proctitis not excluded. Electronically signed by: Galindo Melissa M.D. 10/04/23 21:24 PM
--- NOTE | 2023-10-04 23:49 | History & Physical Report ---
Date of Service October 04, 2023 Assessment & Plan (1) CKD (chronic kidney disease) stage 3, GFR 30-59 ml/min: (2) PTSD (post-traumatic stress disorder): (3) Fecal impaction: (4) Urinary retention: (5) Hypertension: (6) Type 2 diabetes mellitus: Plan Fecal Impaction -CT abdomen/pelvis completed: "Moderate rectal stool burden with mild rectal wall thickening and perirectal stranding. Finding suggests constipation, with proctitis not excluded." -Pt received magnesium citrate and x1 soap suds enema, x1 milk and molasses enema -Suspect patient is chronically constipated, recently exacerbated by modifications to diabetes medications and daily iron pills -Patient now reports he was able to move his bowels twice, endorses a "dark color" but states that is normal with his iron pills. Denies seeing any blood in toilet. -WBC elevated on arrival, will recheck in a.m. As above, CT read notes possibility of proctitis -Will start TID Miralax, can titrate down as needed. IVF ordered. Urinary Retention -Initially presented after being unable to void for several hours -Was straight cathed in ED -States he has now been able to urinate on his own -Bladder scan as needed CKD Stage 3 -Pt endorses declining renal function over the past few years -Cr 2.17 today, last visible Cr was 2.11 in June 2023 -Repeat metabolic panel in a.m. Type 2 Diabetes Mellitus -Hold home diabetes meds (Ozempic, Metformin) -Will order sliding scale insulin while admitted BPH -Continue terazosin qHS Hypertension -Continue Lisinopril, Clonidine GERD -Continue home PPI PTSD -Continue clonazepam 1mg BID PRN Admit to: Med/surg, observation Diet: Carb consistent VTE Prophylaxis: Early ambulation, SCDs Code Status: Full Code History of Present Illness Primary Care Provider: [facility] Ran Starr is a 73 year-old male with past medical history significant for HTN, type 2 diabetes, GERD, CKD stage 3, FÁTIMA, PTSD and BPH who presented to the ED due to constipation. He notes that he has not had a bowel movement in 6 days and today has also been unable to void since 11 am. He reports attempting disimpaction digitally as well as with inserting an old toothbrush to try to remove stool without success. He states he has been attempting this "all day" and is now quite sore. He notes that there have been some recent changes with his diabetes medications (recently started on Ozempic and decreased his Metformin dose, stopped his glipizide) which he feels have also contributed to his bowel irregularity. He notes that he also takes iron pills daily. He denies any nausea/vomiting or abdominal cramping and no history of abdominal surgeries. He denies chest pain or shortness of breath. ED Course: -CT A/P, CBC, CMP -Magnesium citrate, x1 soap suds enema, x1 milk and molasses enema Allergies Allergy/AdvReac Type Severity Reaction Status Date / Time No Known Allergies Allergy Verified 10/04/23 19:46 Home Medications Medication Instructions Recorded Confirmed Type aspirin 81 mg tablet,delayed 81 mg PO QAM 09/14/20 10/04/23 History release (David Low Dose Aspirin) clonazepam 1 mg tablet 1 mg PO HS 09/14/20 10/04/23 History lisinopril 40 mg tablet 40 mg PO QAM 09/14/20 10/04/23 History methyl salicylate 15 %-menthol 10 1 applic topical Q4H PRN Muscle 09/14/20 10/04/23 History % topical cream (Muscle Rub) Pain nitroglycerin 0.4 mg sublingual 0.4 mg sublingual UD PRN Angina 09/14/20 10/04/23 History tablet (Nitrostat) terazosin 5 mg capsule 10 mg PO HS 09/14/20 10/04/23 History atorvastatin 10 mg tablet (Lipitor) 40 mg PO HS 07/03/23 10/04/23 History omeprazole 20 mg tablet,delayed 20 mg PO Q OTHER DAY 07/03/23 10/04/23 History release albuterol sulfate 90 mcg/actuation 2 puff inhalation Q6H PRN 07/10/23 10/04/23 Rx aerosol inhaler Shortness Of Breath Or Wheezing #18 grams clonidine HCl 0.1 mg tablet 0.1 mg PO BID 10/04/23 10/04/23 History diltiazem HCl 120 mg tablet 120 mg PO BID 10/04/23 10/04/23 History docusate sodium 100 mg capsule 100 mg PO BID 10/04/23 10/04/23 History ferrous sulfate 325 mg (65 mg 325 mg PO DAILY 10/04/23 10/04/23 History iron) tablet magnesium oxide 420 mg tablet 420 mg PO DAILY 10/04/23 10/04/23 History metformin 500 mg tablet 500 mg PO BID 10/04/23 10/04/23 History nokkcnmrpcmf-skwaczqc-cuieby 1 tab PO DAILY 10/04/23 10/04/23 History tablet (Multivitamin 50 Plus tablet) semaglutide 0.25 mg or 0.5 mg (2 0.5 mg subcut WK 10/04/23 10/04/23 History mg/3 mL) subcutaneous pen injector (Ozempic) vitamin B complex 1 cap PO DAILY 10/04/23 10/04/23 History Past Med/Surg History Problem List (Updated 10/06/23 @ 00:34 by Isaiah Olsen MD) Fecal impaction (Acute) Type 2 diabetes mellitus Urinary retention Fecal impaction PTSD (post-traumatic stress disorder) CKD (chronic kidney disease) stage 3, GFR 30-59 ml/min Recurrent spontaneous pneumothorax Ex-smoker Anemia GERD (gastroesophageal reflux disease) Diabetes Anxiety Exertional dyspnea (Acute) Heart palpitations (Acute) Hypertension (Acute) Borderline Lyme serology (Acute) Cyst of thyroid (Chronic 12/08/10) Hyponatremia (Chronic 12/08/10) Medical History (Updated 10/06/23 @ 00:34 by Isaiah Olsen MD) Hypertension Surgical History (Updated 09/15/20 @ 06:29 by Ruth Bowers DO) History of tonsillectomy Social History (Updated 07/03/23 @ 09:58 by Nanci Liao LPN) Smoking Status: Former smoker Tobacco Type: Cigarettes and Smokeless Tobacco (Dip or Chew) Age Started Using Tobacco: 6; Age Quit Using Tobacco: 37; Second Hand Exposure: No; Do You Dip or Chew Tobacco: Yes; Tobacco Cessation Education Requested by Patient: No Hx Alcohol Use: No Hx Substance Use: No Preferred Language: Vietnamese Communication Ability: Effective Cover Remover Required: No Beliefs That Will Affect Care: None marital status: Current Living Situation: Spouse Other Information That Helps Us Care for You: No Feels Safe at Home: Yes Safety Concerns: Feels Safe At This Time Assistive Devices: CPAP Review of Systems Review of Systems: As per above Physical Exam Constitutional: WD/WN, vitals as above Eyes: + anicteric sclerae; no conjunctival abn ormality ENMT: Ears: no external ear abnormality Nose: no external nose abnormality Moist mucous membranes Respiratory: normal respiratory effort, lungs clear to auscultation Cardiovascular: Rate/Rhythm: regular rate and regular rhythm No lower extremity edema Gastrointestinal (Abdomen): Abdomen soft, nontender and nondistended Musculoskeletal: Moves all limbs independently Skin: no rashes, warm and dry Psychiatric: A+Ox3, euthymic affect Results & Data Results & Data Vital Signs (Past 12 Hours) Vital Signs Temp Pulse Pulse Resp BP BP Pulse Ox 10/04/23 23:06 74 16 169/89 H 95 10/04/23 20:25 92 H 20 186/88 H 96 10/04/23 18:13 36.8 C 104 H 20 188/90 H 96 O2 Del Method 10/04/23 23:06 Room Air 10/04/23 20:25 Room Air 10/04/23 18:13 Room Air Diagnostic Findings Abdomen/Pelvis CT 10/04/23 18:57 Exam(s): CT ABDOMEN + PELVIS Without Contrast EXAM: CT Abdomen and Pelvis Without Intravenous Contrast CLINICAL HISTORY: Reason for exam: SBO vs urinary outlet obstruction vs constipation. TECHNIQUE: Axial computed tomography images of the abdomen and pelvis without intravenous contrast. CTDI is 24.57 mGy and DLP is 1346.2 mGy-cm. Automated exposure control was utilized for the study. A dose lowering technique was utilized adhering to the principles of ALARA. COMPARISON: No relevant prior studies available. FINDINGS: Lung bases: Unremarkable. No mass. No consolidation. Heart: Coronary atherosclerosis. No cardiomegaly. ABDOMEN: Liver: Unremarkable. Gallbladder and bile ducts: Unremarkable. No calcified stones. No ductal dilation. Pancreas: Unremarkable. No ductal dilation. Spleen: Unremarkable. No splenomegaly. Adrenals: Unremarkable. No mass. Kidneys and ureters: No hydronephrosis. Punctate nonobstructing parenchymal calcification upper pole right kidney. Otherwise, no stones. Simple bilateral renal cysts measuring up to 3 cm on the right; no further follow-up required. Stomach and bowel: Diverticulosis without diverticulitis. No bowel obstruction. Moderate rectal stool burden with mild rectal wall thickening and perirectal stranding. PELVIS: Appendix: Normal appendix. Bladder: Unremarkable. No stones. Reproductive: Unremarkable as visualized. ABDOMEN and PELVIS: Intraperitoneal space: Unremarkable. No free air, significant free fluid, or fluid collection. Bones/joints: Left gilbert-transitional lumbosacral anatomy. Age-related degenerative changes of the spine. No acute fracture or dislocation. Soft tissues: Unremarkable. Vasculature: Aortoiliac and mesenteric arterial atherosclerosis. No aortic aneurysm. Lymph nodes: Unremarkable. No enlarged lymph nodes. IMPRESSION: Moderate rectal stool burden with mild rectal wall thickening and perirectal stranding. Finding suggests constipation, with proctitis not excluded. Electronically signed by: Galindo Melissa M.D. 10/04/23 21:24 PM Supervising Physician Co-Signing Physician Notes Attending addendum: I have physically seen this patient, have supervised the medical residents activities, and agree with the H&P unless as otherwise noted. Assessment and Plan: Fecal impaction/possible proctitis- Received mag citrate, and 2 enemas in the ED, with eventual large nonbloody bowel movement while in the ED Continue bowel regimen IV fluids for rehydration Start MiraLAX as noted Urinary retention- Likely secondary to fecal impaction Urination more freely after being straight cath in ED and after bowel movement is noted CKD stage III- Creatinine 2.17, with base 2.11 Repeat laboratories in a.m. following IV fluids as noted Diabetes mellitus- Hold Ozempic and metformin Placed on Accu-Cheks with NovoLog SSI If resumed, monitor resumption of these medications very closely with chronic kidney disease as noted Resident Activity Tracking Resident Involvement: Resident Care Provided Care Provided: Adult Hospital Medicine (5) Hypertension Hypertension type: unspecified Qualified Code(s): I10 - Essential (primary) hypertension
[2023-10-05] MEDS ORDERED: GLUCAGON FOR INJ 1 MG VIAL SQ PRN (01:31)
[2023-10-05] MEDS ORDERED: CARBOHYDRATES FOR HYPOGLYCEMIA PO PRN (01:31)
[2023-10-05] MEDS ORDERED: GLUCOSE 40% GEL 15 GM TUBE PO PRN (01:31)
[2023-10-05] MEDS ORDERED: DEXTROSE 50% 50 ML SYRINGE IV PRN (01:31)
[2023-10-05] MEDS ORDERED: GLUCOSE 10 TAB/TUBE PO PRN (01:31)
[2023-10-05] MEDS ORDERED: ACETAMINOPHEN 325 MG TAB PO PRN (01:31)
[2023-10-05] MEDS: LACTATED RINGER'S 1,000 ML IV SCH (02:02)
[2023-10-05] MEDS ORDERED: CALCIUM CARBONATE 500 MG CHEWABLE TAB PO PRN (02:18)
[2023-10-05 07:29] LABS: Basophils # (auto) 0.04 K/uL (0.00-0.20); Basophils % (auto) 0.3 %; Eosinophils # (auto) 0.07 K/uL (0.00-0.50); Eosinophils % (auto) 0.5 %; Hematocrit (blood only) 31.3 % (42.0-52.0); Hemoglobin 10.7 g/dl (14.0-18.0); Immature Granulocytes # (auto) 0.07 K/uL (0.01-0.20); Immature Granulocytes % (auto) 0.5 %; Lymphocytes # (auto) 1.37 K/uL (1.20-3.40); Lymphocytes % (auto) 10.6 %; Mean Corpuscular Hemoglobin 28.5 pg (25.0-34.0); Mean Corpuscular Hgb Conc 34.2 g/dL (32.0-36.0); Mean Corpuscular Volume 83.5 fL (80.0-100.0); Mean Platelet Volume 9.9 fL (9.4-12.4); Monocytes # (auto) 0.75 K/uL (0.11-0.59); Monocytes % (auto) 5.8 %; Neutrophils # (auto) 10.61 K/uL (1.40-6.50); Neutrophils % (auto) 82.3 %; Platelet Count 297 K/uL (130-400); RDW Coefficient of Variation 12.8 % (11.5-14.5); RDW Standard Deviation 38.9 fL (36.4-46.3); Red Blood Count 3.75 M/uL (4.70-6.10); White Blood Count 12.91 K/ul (4.8-10.8)
[2023-10-05] MEDS ORDERED: INSULIN ASPART PER UNIT CHARGE SC SCH (07:30)
[2023-10-05 07:50] LABS: Estimated Average Glucose 177 mg/dl; Hemoglobin A1C 7.8 % (4.5-5.6)
[2023-10-05 07:56] LABS: Albumin Globulin Ratio 1.7 (0.9-2); Albumin Level 4.1 gm/dl (3.4-5.0); BUN Creatinine Ratio 11.9 (10-20); Bilirubin,Total 0.4 mg/dl (0.2-1.0); Calcium 9.4 mg/dl (8.6-10.3); Creatinine Clr Calc Pharmacy 40.6 ml/min; Est GFR (African American) 43.2 ml/min; Est GFR (Non-African American) 37.3 ml/min; Globulin 2.4 gm/dl (2.5-4.0); Potassium 4.3 mmol/L (3.5-5.1); Total Protein 6.5 gm/dl (6.0-8.3)
[2023-10-05] MEDS: PANTOprazole 40 MG TAB PO SCH (09:05)
[2023-10-05] MEDS: cloNIDine HCL 0.1 MG TAB PO SCH (09:05)
[2023-10-05] MEDS: dilTIAZem HCl 60 MG TAB PO SCH (09:05)
[2023-10-05] MEDS: lisinopril 40 MG TAB PO SCH (09:06)
[2023-10-05] MEDS: POLYETHYLENE (MIRALAX) 17 GM PACK PO SCH (09:09)
[2023-10-05] MEDS: clonazePAM 1 MG TAB PO STA (10:32)
--- NOTE | 2023-10-05 11:01 | Med Student Discharge Summary ---
Date of Service October 05, 2023 Admission HPI Per Admitting Provider Ran Starr is a 73 year-old male with past medical history significant for HTN, type 2 diabetes, GERD, CKD stage 3, FÁTIMA, PTSD and BPH who presented to the ED due to constipation. He notes that he has not had a bowel movement in 6 days and today has also been unable to void since 11 am. He reports attempting disimpaction digitally as well as with inserting an old toothbrush to try to remove stool without success. He states he has been attempting this "all day" and is now quite sore. He notes that there have been some recent changes with his diabetes medications (recently started on Ozempic and decreased his Metf ormin dose, stopped his glipizide) which he feels have also contributed to his bowel irregularity. He notes that he also takes iron pills daily. He denies any nausea/vomiting or abdominal cramping and no history of abdominal surgeries. He denies chest pain or shortness of breath. ED Course: -CT A/P, CBC, CMP -Magnesium citrate, x1 soap suds enema, x1 milk and molasses enema Admission Exam (Per Admitting) Constitutional WD/WN, vitals as above Eyes + anicteric sclerae; no conjunctival abnormality ENMT Ears: no external ear abnormality Nose: no external nose abnormality Respiratory normal respiratory effort, lungs clear to auscultation Cardiovascular Rate/Rhythm: regular rate and regular rhythm Gastrointestinal (Abdomen) normal bowel sounds, soft, nontender, no hepatosplenomegaly Skin no rashes, warm and dry Psychiatric A+Ox3, euthymic affect Discharge Exam Gen: Alert and oriented, in no acute distress Constitutional WD/WN, vitals as above Eyes + anicteric sclerae; no conjunctival abnormality ENMT Ears: no external ear abnormality Nose: no external nose abnormality Respiratory normal respiratory effort, lungs clear to auscultation Cardiovascular Rate/Rhythm: regular rate and regular rhythm Gastrointestinal (Abdomen) normal bowel sounds, soft, nontender, no hepatosplenomegaly Skin no rashes, warm and dry Psychiatric A+Ox3, euthymic affect Discharge Data Consultations 10/05/23 01:39 ED Decision to Admit Stat Hospital Course (1) CKD (chronic kidney disease) stage 3, GFR 30-59 ml/min: (2) PTSD (post-traumatic stress disorder): (3) Fecal impaction: (4) Urinary retention: (5) Hypertension: (6) Type 2 diabetes mellitus: Plan Fecal Impaction -CT abdomen/pelvis completed: "Moderate rectal stool burden with mild rectal wall thickening and perirectal stranding. Finding suggests constipation, with proctitis not excluded." -Suspect patient is chronically constipated, recently exacerbated by modifications to diabetes medications and daily iron pills. -WBC trended down from admission. -Continue home stool regimen. -Take one capful of Miralax daily and titrate up as needed. -Patient educated on eating a well-balanced diet with more fruits and vegetable s. Urinary Retention -Initially presented after being unable to void for several hours. -Straight cathed in ED. -Patient able to urinate on his own at time of discharge. CKD Stage 3 -Patient endorses declining renal function over the past few years -Cr 2.17 upon admission and 1.76 upon discharge Type 2 Diabetes Mellitus -Resume home medications, Metformin and Ozempic Discharge Plan Discharge Items Patient Disposition: Home - Self-Care Reason For Visit: FECAL IMPACTION Discharge Diagnosis: constipation, fecal impaction Condition on Discharge: Good Activity: Resume your previous activity Non-emergency contact: Primary Care Provider Call non-emergency contact if: you have any medication questions and your symptoms worsen Follow-up/Referrals: [facility] [Primary Care Provider] - Diet: Carb Consistent or DM2 and Heart Healthy Addtl Attending Provider Instructions: You were admitted to the hospital for fecal impaction with associated urinary retention. Moving forward, it will be important to ensure that you are having more regular bowel movements. Some of your medications can also predispose you to becoming constipated. To help avoid this, we would recommend increasing use of a stool softener such as Miralax - you can start with 1 capful dissolved in water daily and titrate up as needed until you are having regular, soft bowel movements. A discharge summary will be sent to your primary care physician to ensure continuity of care. Please bring this discharge summary with you to your next office appointment so that your provider can review it at that time. Medications: Your medication list has been reviewed and reconciled upon discharge to ensure accuracy and continuity of care. An updated list of all your medications is included with your hospital discharge paperwork. Please review this list closely and make note of any changes to your medications. - No changes were made to your home medications; please continue to take them as previously directed. Follow up appointments: - Make a follow up appointment with your PCP within the next week. It is very important that you follow up with them shortly after discharge from the hospital. - Keep all of your follow up appointments as already scheduled. If you cannot make an appointment, notify your provider. CONTACT YOUR PRIMARY CARE PROVIDER if you experience any of the following: - Difficulty following your treatment plan - Difficulty taking any of your medications CALL 911 OR GO TO THE EMERGENCY DEPARTMENT if you experience any of the following: - Sudden, severe abdominal pain or nausea/vomiting - Severe chest pain or chest pain that radiates to your jaw or arm - Sudden, severe shortness of breath or difficulty breathing Pending Studies at Discharge: No Stand-Alone Forms: [facility], Smoking Cessation Medications and DC Order Prescriptions: Continued albuterol sulfate 90 mcg/actuation HFA aerosol inhaler 2 puff inhalation Q6H PRN (Reason: Shortness Of Breath Or Wheezing) Qty: 18 3RF terazosin 5 mg Capsule 10 mg PO HS clonazepam 1 mg Tablet 1 mg PO HS aspirin [David Low Dose Aspirin] 81 mg Tablet,Delayed Release (Dr/Ec) 81 mg PO QAM nitroglycerin [Nitrostat] 0.4 mg Tablet, Sublingual 0.4 mg sublingual UD PRN (Reason: Angina) lisinopril 40 mg Tablet 40 mg PO QAM Muscle Rub 15-10 % Cream 1 applic TOPICAL Q4H PRN (Reason: Muscle Pain) atorvastatin [Lipitor] 10 mg tablet 40 mg PO HS omeprazole 20 mg tablet,delayed release (DR/EC) 20 mg PO Q OTHER DAY metformin 500 mg Tablet 500 mg PO BID clonidine HCl 0.1 mg Tablet 0.1 mg PO BID magnesium oxide 420 mg Tablet 420 mg PO DAILY diltiazem HCl 120 mg Tablet 120 mg PO BID ferrous sulfate 325 mg (65 mg iron) Tablet 325 mg PO DAILY docusate sodium 100 mg Capsule 100 mg PO BID vitamin B complex Capsule 1 cap PO DAILY Multivitamin 50 Plus Tablet 1 tab PO DAILY Ozempic 0.25 mg or 0.5 mg (2 mg/3 mL) Pen Injector 0.5 mg SUBCUT WK Rx Instructions: MONDAYS Discharge Orders: Discharge Order (Routine); Ordered 10/05/23 Ordered By: Donald Springer/Other Patient Handouts: Managing Type 2 Diabetes Admission Data Admit Date/Time: 10/05/23 01:06 Attending Provider: Dian Grande Admit Provider: Oliva Carson Primary Care Provider: [facility] Other Providers: Ravindra Fritz Other Interventions: Discharge Summary Assessment (RN) Last Done: 10/05/23 11:31 Supervising Attestation Attending Physician Supervision Note: I independently interviewed and examined the patient and verified the pacheco history and physical, reviewed labs and image studies and agree with findings and care plan noted above. Denied any rectal pain. Emerado ready to go home. comfortable in bed. AAOx3 Fecal impaction, acute on chronic, with leading inflammatory CT findings and urinary retention - manual disimpaction done by ED physician. did better afterwards. urinary retention resolved as well -counselled on dietary changes and miralax use. Resident Activity Tracking Resident Involvement: Resident Care Provided Care Provided: Adult Hospital Medicine
[2023-10-05 12:23] LABS: iSTAT Blood Urea Nitrogen 22 mg/dl (7-18); iSTAT Carbon Dioxide 19 mmol/L (24-31); iSTAT Chloride 99 mmol/L (101-112); iSTAT Glucose 283 mg/dl (70-99); iSTAT Hematocrit 37 % (42-52); iSTAT Hemoglobin 12.6 g/dl (14.0-18.0); iSTAT Ionized Calcium 1.18 mmol/l (1.12-1.32); iSTAT Potassium 4.3 mmol/L (3.3-5.0); iSTAT Sodium 132 mmol/L (135-144)
[2023-10-05] MEDS ORDERED: TERAZOSIN HCL 5 MG CAP PO SCH (21:00)
[2023-10-05] MEDS ORDERED: ATORVASTATIN 40 MG TAB PO SCH (21:00)
[2023-10-05] MEDS ORDERED: clonazePAM 1 MG TAB PO SCH (21:00)
--- NOTE | 2023-10-06 20:06 | Billing Data ---
Date of Service October 06, 2023 Coding Level of Care Code 69891 INT INP/OBS CARE
== END 2023-10-05 11:31 | disposition home or self-care (01) ==
LOC: EDINP 18:04 → ED 18:04 → SUATTDRO 10-05 01:06 → EDINP 10-05 01:31

== ENCOUNTER 2025-02-24 09:16 | Observation (INO) ==
--- NOTE | 2025-02-24 09:34 | Emergency Department Note ---
Impression & Plan Hyponatremia, Diabetes, Dizziness, Bradycardia, JOSE (acute kidney injury) ED Provider Note NAME: DALLAS VILLAR AGE: 74 SEX: M : 1950 ARRIVES VIA: Walk-In INFORMANT: Patient, ED PROVIDER(S): Meet Moy MD CHIEF COMPLAINT: Bradycardia, dizziness MEDICAL DECISION MAKING: Patient presents with the above. Patient says show his Apple watch apparently has been using a pulse oximeter which been congruent with bradycardia at home. Primarily does happen overnight but reportedly was also happening during the day. Review of the patient's iPhone does show that these episodes are lasting greater than 10 minutes when they do occur. IV was established and blood work was obtained along with an EKG. EKG does show PVCs unclear as to whether or not maybe the phone and pulse oximeter may not be picking up the PVCs. Patient's blood work shows a normal white count hemoglobin 11 which is chronic and stable normal platelet count. Slight worsening kidney dysfunction with creatinine 2.8 today. Sodium is worse at 129 has been running in the low 130s. Patient's chest x-ray does not show evidence of obvious pneumonia. Given the patient's symptomatic bradycardia or at least dizziness to be the patient would benefit from admission. Patient also with hyponatremia. I did speak the on- call hospital service and the patient was admitted by Dr. Betancourt. Discussion w/ other healthcare providers: Dr. Betancourt inpatient medicine service Prior /Outside records reviewed: None Differential diagnosis: Dysrhythmia, bradycardia infection, dehydration, metabolic abnormality, hypo/hyperglycemia, electrolyte imbalance, anemia, UTI, pneumonia, thyroid dysfunction among others were considered. Diagnostics, as interpreted by me: ECG: Sinus with PVCs, rate of 71, normal intervals, normal axis no ST elevations, PVCs noted. Cardiac monitoring: An order was placed for continuous cardiac monitoring. The monitor shows a rate of 75 with sinus rhythm. Patient was placed on pulse oximetry Medical decision rules: None Imaging studies: I informally interpreted the patient's chest x-ray does not show obvious pneumonia with formal report to follow. HPI: Patient presents for concern for dizziness and bradycardia. The patient reports that he had significant episodes of bradycardia primarily during sleep. The patient has complained of some lightheadedness and dizziness. He has followed with Dr. Xiong and her cardiology [facility] but does not want to follow back with him. He denies any chest pains or shortness of breath. He reports compliance with medications. He had been on Coreg before but he was taken off of this due to concerns for his bradycardia in the past and was switched to amlodipine. Patient denies any falls or trauma. He denies any leg swelling. PAST MEDICAL HISTORY: See Below PAST SURGICAL HISTORY: See Below SOCIAL HISTORY: See Below HOME MEDICATIONS: See Below ALLERGIES: See Below VITALS: See Below PHYSICAL EXAMINATION: GENERAL: NAD, non-toxic. EYE EXAM: Normal conjunctiva. PERRL, no anisocoria and EOM's grossly intact w/o pain. OROPHARYNX: Moist mucus membranes, grossly normal dentition. NECK: Trachea midline, no stridor. LUNGS: Clear to auscultation. Normal chest wall mechanics. HEART: NSR, no MRG. ABDOMEN: Abdomen soft, non-tender, no masses, no rebound or guarding. BACK: No CVA TTP. SKIN: No rashes and no bruising. UPPER EXTREMITIES: Upper extremities are grossly normal. LOWER EXTREMITIES: Grossly normal, no edema. NEURO EXAM: Awake and alert, follows commands, no obvious facial asymmetry, normal speech, moves all 4 extremities. Past Med/Surg History Problem List (Updated 02/24/25 @ 15:49 by Meet Moy MD) JOSE (acute kidney injury) (Acute) Bradycardia (Acute) Dizziness (Acute) Dizziness Fecal impaction (Acute) Type 2 diabetes mellitus Fecal impaction PTSD (post-traumatic stress disorder) CKD (chronic kidney disease) stage 3, GFR 30-59 ml/min Recurrent spontaneous pneumothorax Ex-smoker Anemia Borderline Lyme serology (Acute) Hypertension (Acute) Heart palpitations (Acute) Exertional dyspnea (Acute) GERD (gastroesophageal reflux disease) Anxiety Diabetes (Acute) Hyponatremia (Acute 12/08/10) Cyst of thyroid (Chronic 12/08/10) Medical History Heart palpitations "As per 3 cardiologists it's nothing to worry about" as per patient Hx of basal cell carcinoma "about 5 times" Cataracts, bilateral Hx of migraines Sleep apnea C-PAP Recurrent spontaneous pneumothorax 02/2022 & 03/2022 while in [place] as per patient - denies any issues at this time - unsure who specialist is but patient thinks he followed with a lung doctor PTSD (post-traumatic stress disorder) Exertional dyspnea GERD (gastroesophageal reflux disease) "mild" Type 2 diabetes mellitus IDDM/Oral Cyst of thyroid "They haven't even checked it in the last four years" as per patient Anxiety CKD (chronic kidney disease) stage 3, GFR 30-59 ml/min Follows with provider out [facility]/Telehealth as per patient "Kidney Function is down to 25%" Anemia Iron Supplement Urinary retention "I probably have an elarged prostate but they don't check it anymore" Hypertension Surgical History Hx of esophagogastroduodenoscopy Hx of colonoscopy Hx of basal cell carcinoma excision multiple History of tonsillectomy Family History Other Family history non-contributory Social History Smoking Status: Former smoker Tobacco Type: Cigarettes and Smokeless Tobacco (Dip or Chew) Age Started Using Tobacco: 6; Age Quit Using Tobacco: 37; Cigarettes Per Day: 35; Second Hand Exposure: No; Do You Dip or Chew Tobacco: Yes (Advised); Hx Alcohol Use: No Hx Substance Use: No Preferred Language: Setswana Communication Ability: Effective [employer] Required: No Beliefs That Will Affect Care: None marital status: Current Living Situation: Spouse Feels Safe at Home: Yes Assistive Devices: CPAP and Glasses Allergies Allergies Allergy/AdvReac Type Severity Reaction Status Date / Time hydrochlorothiazide Allergy Unknown listed as Unverified 09/09/24 18:13 allergy on list from OR Home Meds Home Medications Medication Instructions Recorded Confirmed clonazepam 1 mg tablet (Klonopin) 1 mg PO BID ptsd/anxiety 09/14/20 02/24/25 lisinopril 40 mg tablet 20 mg PO QAM 09/14/20 02/24/25 omeprazole 20 mg tablet,delayed 20 mg PO DAILY PRN Heartburn 07/03/23 02/24/25 release docusate sodium 100 mg capsule 100 mg PO TID PRN Constipation 10/04/23 02/24/25 (Stool Softener) ferrous sulfate 325 mg (65 mg 325 mg PO .Q OTHER DAY 10/04/23 02/24/25 iron) tablet magnesium oxide 420 mg tablet 420 mg PO .Q OTHER DAY 10/04/23 02/24/25 [id number]-[id number]-ymcqbn 1 tab PO QAM 10/04/23 02/24/25 tablet (Multivitamin 50 Plus tablet) insulin glargine 100 unit/mL 38 unit subcut QAM 01/02/24 02/24/25 subcutaneous solution (Lantus U-100 Insulin) ammonium lactate 12 % topical cream 1 applic topical DAILY PRN Dry Skin 09/09/24 02/24/25 cholecalciferol (vitamin D3) 25 5,000 unit PO DAILY 09/09/24 02/24/25 mcg (1,000 unit) tablet glucose 4 gram chewable tablet 8 g PO DAILY PRN low blood sugar 09/09/24 02/24/25 hydralazine 50 mg tablet 50 mg PO TID 09/09/24 02/24/25 lanolin alcohols-mineral 1 applic topical DAILY PRN Dry Skin 09/09/24 02/24/25 oil-w.petrolatum-ceresin topical cream (Eucerin topical cream) atorvastatin 20 mg tablet 20 mg PO DAILY 02/24/25 02/24/25 sodium bicarbonate 650 mg tablet 650 mg PO QAM 02/24/25 02/24/25 terazosin 2 mg capsule 4 mg PO HS 02/24/25 02/24/25 Results & Data (ED) Vital Signs Vital Signs - 24 hr 02/24/25 09:19 02/24/25 09:39 02/24/25 09:39 Temperature 36.5 C Temperature Source Temporal Artery Scan Pulse Rate 79 Pulse Rate [Apical] 72 Pulse Rhythm [Apical] Pulse Strength [Apical] Respiratory Rate 18 16 Respiratory Effort / Characteristics Non-Labored Spontaneous Respiratory Depth Normal Respiratory Pattern Regular Blood Pressure 141/62 H Blood Pressure [Left Arm] 173/97 H Blood Pressure Mean 88 Blood Pressure Mean [Left Arm] 122 Blood Pressure Position [Left Arm] Pulse Oximetry 97 96 97 Oxygen Delivery Method Room Air Room Air Room Air Sepsis Recent Fever Within 48 Hours No Sepsis New/Unexplained Change in Mental Status N/A Sepsis Action Taken by Nursing No Action Required 02/24/25 11:25 02/24/25 12:00 02/24/25 12:42 Temperature Temperature Source Pulse Rate 72 Pulse Rate [Apical] 42 L 64 Pulse Rhythm [Apical] Regular Pulse Strength [Apical] Normal Respiratory Rate 19 16 Respiratory Effort / Characteristics Non-Labored Spontaneous Non-Labored Spontaneous Respiratory Depth Normal Normal Respiratory Pattern Regular Regular Blood Pressure Blood Pressure [Left Arm] 168/77 H 150/57 H Blood Pressure Mean Blood Pressure Mean [Left Arm] 107 88 Blood Pressure Position [Left Arm] Sitting Sitting Pulse Oximetry 95 95 Oxygen Delivery Method Room Air Room Air Sepsis Recent Fever Within 48 Hours Sepsis New/Unexplained Change in Mental Status Sepsis Action Taken by Nursing 02/24/25 14:34 02/24/25 15:19 Temperature Temperature Source Pulse Rate 71 Pulse Rate [Apical] 71 Pulse Rhythm [Apical] Pulse Strength [Apical] Respiratory Rate 16 16 Respiratory Effort / Characteristics Non-Labored Spontaneous Respiratory Depth Respiratory Pattern Blood Pressure 177/83 H Blood Pressure [Left Arm] 184/80 H Blood Pressure Mean Blood Pressure Mean [Left Arm] 114 Blood Pressure Position [Left Arm] Pulse Oximetry 96 95 Oxygen Delivery Method Room Air Room Air Sepsis Recent Fever Within 48 Hours Sepsis New/Unexplained Change in Mental Status Sepsis Action Taken by Jail Medications Current Medication List: was personally reviewed by me Laboratory Data Attestation: I reviewed the patient's lab results. 02/24/25 09:38 02/24/25 09:38 Lab Results 02/24/25 Range/Units 09:38 WBC 7.94 (4.8-10.8) K/ul RBC 3.66 L (4.70-6.10) M/uL Hgb 11.1 L (14.0-18.0) g/dL Hct 31.1 L (42.0-52.0) % MCV 85.0 (80.0-100.0) fL MCH 30.3 (25.0-34.0) pg MCHC 35.7 (32.0-36.0) g/dL RDW Std Deviation 36.0 L (36.4-46.3) fL RDW Coeff of Brett 11.7 (11.5-14.5) % Plt Count 281 (130-400) K/uL MPV 10.0 (9.4-12.4) fL Immature Gran % (Auto) 0.4 % Neut % (Auto) 72.5 % Lymph % (Auto) 18.0 % [place] % (Auto) 7.1 % Eos % (Auto) 1.4 % Baso % (Auto) 0.6 % Neut # (Auto) 5.76 (1.40-6.50) K/uL Lymph # (Auto) 1.43 (1.20-3.40) K/uL [place] # (Auto) 0.56 (0.11-0.59) K/uL Eos # (Auto) 0.11 (0.00-0.50) K/uL Baso # (Auto) 0.05 (0.00-0.20) K/uL Immature Gran # (Auto) 0.03 (0.01-0.20) K/uL Sodium 129 L (136-145) mmol/L Potassium 4.3 (3.5-5.1) mmol/L Chloride 96 L (98-107) mmol/L Carbon Dioxide 24 (21-32) mmol/L Anion Gap 9 (3-11) BUN 29 H (6-23) mg/dl Creatinine 2.82 H (0.6-1.4) mg/dl Est Cr Clr Drug Dosing 25.4 ml/min eGFR 22.62 BUN/Creatinine Ratio 10.3 (10-20) Glucose 230 H (70-99(Fasting)) mg/dl Calcium 9.9 (8.6-10.3) mg/dl Magnesium 1.7 (1.7-2.4) mg/dl Total Bilirubin 0.4 (0.2-1.0) mg/dl AST 15 (13-39) U/L ALT 13 (7-52) U/L Alkaline Phosphatase 48 (34-104) U/L Troponin I High Sens 8.2 (0-20) pg/ml Total Protein 7.0 (6.0-8.3) gm/dl Albumin 4.3 (3.4-5.0) gm/dl Globulin 2.7 (2.5-4.0) gm/dl Albumin/Globulin Ratio 1.6 (0.9-2) TSH 1.496 (0.300-4.500) uIu/ml Lyme Disease Screen Negative (Negative) Administered Medications Hydralazine HCl (Hydralazine Tab 50 Mg Tab) 50 mg PO TID MANNY Stop: 03/26/25 13:59 Last Admin: 02/24/25 15:01 Dose: 50 mg Documented By: JUDY Magnesium Sulfate/Dextrose (Magnesium Sulfate / D5w) 1 gm in 100 mls @ 50 mls/hr IV Q2H MANNY Stop: 02/24/25 17:44 Last Admin: 02/24/25 14:31 Dose: 50 mls/hr Documented By: JUDY Discontinued Medications Calcium Carbonate (Calcium Carbonate 500 Mg Chewable Tab) 1,500 mg PO NOW STA Stop: 02/24/25 11:37 Last Admin: 02/24/25 11:46 Dose: 1,500 mg Documented By: [facility] [place] Imaging Data Radiologist's Impression: Chest X-Ray 02/24/25 09:27 SINGLE VIEW CHEST CLINICAL HISTORY: Dysrhythmia FINDINGS: An AP, portable, upright chest radiograph is compared to study dated 01/27/2025 and correlated with chest CT dated 09/09/2024. The heart is enlarged. There is mild prominence of the pulmonary vasculature. Chronic interstitial thickening is similar to previous. There is bibasilar scarring/atelectasis. No airspace consolidation or large pleural effusion is identified. No pneumothorax is seen. The skeletal structures are osteopenic. The bony thorax is grossly intact. IMPRESSION: 1. Cardiomegaly with prominence of the pulmonary vasculature. Correlate clinically for evidence of mild fluid overload/congestive change. 2. No airspace consolidation or large pleural effusion is identified. ACT 112: Negative or not required by law. Electronically signed by: Henry Ramirez M.D. 02/24/2025 11:17 AM Discharge Plan Visit Data Chief Complaint: Cardiac Assessment Stated Complaint: LOW HEART RATE ED Provider: Meet Moy Discharge Problem: Hyponatremia, Diabetes, Dizziness, Bradycardia, JOSE (acute kidney injury) Patient Disposition: Admitted As Inpatient Condition: Good Discharge Instructions Interventions: ED Discharge Assessment Last Done: 02/24/25 15:19 Prescriptions Prescriptions: No Action clonazepam [Klonopin] 1 mg Tablet 1 mg PO BID lisinopril 40 mg Tablet 20 mg PO QAM omeprazole 20 mg tablet,delayed release (DR/EC) 20 mg PO DAILY PRN (Reason: Heartburn) magnesium oxide 420 mg Tablet 420 mg PO .Q OTHER DAY ferrous sulfate 325 mg (65 mg iron) Tablet 325 mg PO .Q OTHER DAY docusate sodium [Stool Softener] 100 mg Capsule 100 mg PO TID PRN (Reason: Constipation) Multivitamin 50 Plus Tablet 1 tab PO QAM insulin glargine [Lantus U-100 Insulin] 100 unit/mL Solution 38 unit SUBCUT QAM glucose 4 gram Tablet,Chewable 8 g PO DAILY PRN (Reason: low blood sugar) ammonium lactate 12 % Cream 1 applic TOPICAL DAILY PRN (Reason: Dry Skin) hydralazine 50 mg tablet 50 mg PO TID cholecalciferol (vitamin D3) 25 mcg (1,000 unit) Tablet 5,000 unit PO DAILY Eucerin Cream 1 applic TOPICAL DAILY PRN (Reason: Dry Skin) atorvastatin 20 mg Tablet 20 mg PO DAILY sodium bicarbonate 650 mg Tablet 650 mg PO QAM terazosin 2 mg Capsule 4 mg PO HS
[2025-02-24 10:00] LABS: Hematocrit (blood only) 31.1 % (42.0-52.0); Hemoglobin 11.1 g/dL (14.0-18.0); Immature Granulocytes # (auto) 0.03 K/uL (0.01-0.20); Immature Granulocytes % (auto) 0.4 %; Mean Corpuscular Hemoglobin 30.3 pg (25.0-34.0); Mean Corpuscular Volume 85.0 fL (80.0-100.0); Platelet Count 281 K/uL (130-400); RDW Standard Deviation 36.0 fL (36.4-46.3); Red Blood Count 3.66 M/uL (4.70-6.10); White Blood Count 7.94 K/ul (4.8-10.8)
[2025-02-24 10:17] LABS: Alanine Aminotransferase 13.0 U/L (7-52); Albumin Globulin Ratio 1.6 (0.9-2); Albumin Level 4.3 gm/dl (3.4-5.0); Alkaline Phosphatase 48.0 U/L (34-104); Anion Gap 9.0 (3-11); Bilirubin,Total 0.4 mg/dl (0.2-1.0); Blood Urea Nitrogen 29.0 mg/dl (6-23); Calcium 9.9 mg/dl (8.6-10.3); Carbon Dioxide 24.0 mmol/L (21-32); Chloride 96.0 mmol/L (98-107); Creatinine Clr Calc Pharmacy 25.4 ml/min; Globulin 2.7 gm/dl (2.5-4.0); Glucose 230.0 mg/dl (70-99(Fasting)); Magnesium 1.7 mg/dl (1.7-2.4); Potassium 4.3 mmol/L (3.5-5.1); Sodium 129.0 mmol/L (136-145); Total Protein 7.0 gm/dl (6.0-8.3)
[2025-02-24 10:31] LABS: Thyroid Stimulating Hormone 1.496 uIu/ml (0.300-4.500)
--- NOTE | 2025-02-24 11:19 | XRay Report ---
SINGLE VIEW CHEST CLINICAL HISTORY: Dysrhythmia FINDINGS: An AP, portable, upright chest radiograph is compared to study dated 01/27/2025 and correla andrew with chest CT dated 09/09/2024. The heart is enlarged. There is mild prominence of the pulmonary va sculature. Chronic interstitial thickening is similar to previous. There is bibasilar scarring/atelec tasis. No airspace consolidation or large pleural effusion is identified. No pneumothorax is seen. Th e skeletal structures are osteopenic. The bony thorax is grossly intact. IMPRESSION: 1. Cardiomegaly with prominence of the pulmonary vasculature. Correlate clinically for evidence of mi ld fluid overload/congestive change. 2. No airspace consolidation or large pleural effusion is identified. ACT 112: Negative or not required by law. Electronically signed by: Henry Ramirez M.D. 02/24/2025 11:17 AM
[2025-02-24] MEDS: CALCIUM CARBONATE 500 MG CHEWABLE TAB PO STA (11:46)
--- NOTE | 2025-02-24 12:37 | History & Physical Report ---
Date of Service February 24, 2025 Assessment & Plan (1) Dizziness: (2) Hyponatremia: (3) Type 2 diabetes mellitus: (4) CKD (chronic kidney disease) stage 3, GFR 30-59 ml/min: Plan This patient is a 74-year-old male with a history of DM2, HTN, HLD, recurrent spontaneous PTX, former smoker, benign essential tremor, GERD, anxiety disorder/PTSD, BPH, CKD stage III, chronic anemia, MGUS, gout, and FÁTIMA no longer on CPAP due to recurrent PTX, who presents to the ED with dizziness and a low heart rate as per his Apple Watch and home pulse oximeter as well as home BP cuff. His Apple Watch has been noting a low heart rate primarily overnight but also sometimes during the day as low as in the 40s lasting greater than 10 minutes and sometimes into the upper 20s at night. He reports he just saw a longshore equipment operator at [facility] in [place] 2 weeks ago for the same issue, but was told he had nothing to worry about. He did finish a 1-week event monitor through the [place] about 2 weeks ago but has not yet received the results. He is concerned because when he has the presumed low heart rate, he does feel nauseous and sort of a "flip" in his stomach as well as a dull headache on the left side of his head. He has not passed out. Denies chest pains or shortness of breath. The episodes have been coming on much more frequently just in the last 3 days. Of note, he did stop taking carvedilol about 2 weeks ago due to the presumed low heart rate. An ECG in the ED showed PVCs. Laboratory workup was fairly unremarkable except for mild hyponatremia, mild chronic anemia, and acute renal insufficiency over CKD stage IV. He will be admitted for workup for dizziness and bradycardia as well as for hyponatremia and acute renal insufficiency. #Dizziness/possible bradycardia-seems to be having more frequent bigeminy and PVCs that are not being picked up by his home devices. His heart rate on telemetry in the ED is in the 60s, but his symptoms exactly correlate with the bigeminy and PVCs he is having on arrival. He is mildly dry as evidenced by increasing BUN/creatinine from baseline but otherwise no significant electrolyte abnormalities. Lyme titer negative, troponin negative, no evidence of ischemia on ECG, no chest pain. He recently stopped taking carvedilol 2 weeks ago and this may have allowed more frequent PVCs to occur. Also, no longer able to wear CPAP for the last year due to recurrent pneumothoraces. - Admit to PCU for arrhythmia monitoring - Consult [facility] cardiology for further evaluation appreciated - Keep electrolytes replete-give 2 g IV magnesium sulfate to optimize greater than 2.0 - Consider adding beta-levy at low-dose back onto his regimen to suppress PVCs - Check echo #Hyponatremia/JOSE on CKD stage IV-when sodium is corrected for hyperglycemia, his sodium is actually 132 which is around his baseline. This is likely secondary to CKD stage IV. He follows with nephrology as an outpatient. His BPs are somewhat elevated. His lisinopril dose was recently decreased to 20 mg daily and his carvedilol was recently discontinued due to his presumed bradycardia. Creatinine increased to 2.8 from usual 2.4 - Continue sodium bicarbonate 650 mg p.o. once daily - Follow BMP - Avoid nephrotoxic agents and renally dose medications when appropriate #DM2 with hyperglycemia-blood sugars here in the 250 range. He takes Lantus 38 units once daily at home. - Continue Lantus 38 units once daily and add NovoLog supplemental insulin - Check HgbA1c in the a.m. - Diabetic diet - Accu-Cheks AC and at bedtime #HTN/HLD-BPs are elevated here. He has had recent changes to his medications to include discontinuing carvedilol and decreasing lisinopril from 40 mg to 20 mg once daily. - Continue hydralazine 50 mg p.o. 3 times daily - Continue lisinopril 20 mg p.o. once daily, terazosin 4 mg p.o. at bedtime which is also for his BPH - Monitor blood pressures #Chronic anemia/MGUS-Hgb fairly stable at 11, normocytic, previously followed with hematology at [facility] but has not been there in a while - Check iron studies, B12, folate, - Follow CBC in the a.m. - Follow-up with hematology as an outpatient #Former smoker/history of recurrent spontaneous PTX-with a previous [id number] smoking history, yet quit 37 years ago. He is no longer allowed to fly or uses CPAP machine due to history of 3 spontaneous PTX. No acute issues #Anxiety disorder/PTSD-no acute issues - Continue home clonazepam scheduled twice daily #GERD-no acute issues - Continue home omeprazole as needed #Gout-no acute issues - Takes colchicine as needed #FÁTIMA-previously well-controlled on CPAP but no longer allowed to use this given his multiple recurrent spontaneous PTX. This could be contributing to his worsening bradycardia - Check overnight pulse oximetry and get him qualified for nocturnal O2 if possible DVT prophylaxis-heparin SQ, SCDs Disposition-admit to PCU History of Present Illness Chief Complaint: Lightheadedness, low heart rate Primary Care Provider: Justin Ordoñez MD This patient is a 74-year-old male with a history of DM2, HTN, HLD, recurrent spontaneous PTX, former smoker, benign essential tremor, GERD, anxiety disorder/PTSD, BPH, CKD stage III, chronic anemia, MGUS, gout, and FÁTIMA no longer on CPAP due to recurrent PTX, who presents to the ED with dizziness and a low heart rate as per his Apple Watch and home pulse oximeter as well as home BP cuff. His Apple Watch has been noting a low heart rate primarily overnight but also sometimes during the day as low as in the 40s lasting greater than 10 minutes and sometimes into the upper 20s at night. He reports he just saw a longshore equipment operator at [facility] in [place] 2 weeks ago for the same issue, but was told he had nothing to worry about. He did finish a 1-week event monitor through the [place] about 2 weeks ago but has not yet received the results. He is concerned because when he has the presumed low heart rate, he does feel nauseous and sort of a "flip" in his stomach as well as a dull headache on the left side of his head. He has not passed out. Denies chest pains or shortness of breath. The episodes have been coming on much more frequently just in the last 3 days. Of note, he did stop taking carvedilol about 2 weeks ago due to the presumed low heart rate. An ECG in the ED showed PVCs. Laboratory workup was fairly unremarkable except for mild hyponatremia, mild chronic anemia, and acute renal insufficiency over CKD stage IV. He will be admitted for workup for dizziness and bradycardia as well as for hyponatremia and acute renal insufficiency. Allergies Allergy/AdvReac Type Severity Reaction Status Date / Time hydrochlorothiazide Allergy Unknown listed as Unverified 09/09/24 18:13 allergy on list from [place] Home Medications Medication Instructions Recorded Confirmed Type clonazepam 1 mg tablet (Klonopin) 1 mg PO BID ptsd/anxiety 09/14/20 02/24/25 History lisinopril 40 mg tablet 20 mg PO QAM 09/14/20 02/24/25 History omeprazole 20 mg tablet,delayed 20 mg PO DAILY PRN Heartburn 07/03/23 02/24/25 History release docusate sodium 100 mg capsule 100 mg PO TID PRN Constipation 10/04/23 02/24/25 History (Stool Softener) ferrous sulfate 325 mg (65 mg 325 mg PO .Q OTHER DAY 10/04/23 02/24/25 History iron) tablet magnesium oxide 420 mg tablet 420 mg PO .Q OTHER DAY 10/04/23 02/24/25 History lfpbjfccbcaz-ztipcxyo-fcahjw 1 tab PO QAM 10/04/23 02/24/25 History tablet (Multivitamin 50 Plus tablet) insulin glargine 100 unit/mL 38 unit subcut QAM 01/02/24 02/24/25 History subcutaneous solution (Lantus U-100 Insulin) ammonium lactate 12 % topical cream 1 applic topical DAILY PRN Dry Skin 09/09/24 02/24/25 History cholecalciferol (vitamin D3) 25 5,000 unit PO DAILY 09/09/24 02/24/25 History mcg (1,000 unit) tablet glucose 4 gram chewable tablet 8 g PO DAILY PRN low blood sugar 09/09/24 02/24/25 History hydralazine 50 mg tablet 50 mg PO TID 09/09/24 02/24/25 History lanolin alcohols-mineral 1 applic topical DAILY PRN Dry Skin 09/09/24 02/24/25 History oil-w.petrolatum-ceresin topical cream (Eucerin topical cream) atorvastatin 20 mg tablet 20 mg PO DAILY 02/24/25 02/24/25 History sodium bicarbonate 650 mg tablet 650 mg PO QAM 02/24/25 02/24/25 History terazosin 2 mg capsule 4 mg PO HS 02/24/25 02/24/25 History Past Med/Surg History Problem List Dizziness Fecal impaction (Acute) Type 2 diabetes mellitus Fecal impaction PTSD (post-traumatic stress disorder) CKD (chronic kidney disease) stage 3, GFR 30-59 ml/min Recurrent spontaneous pneumothorax Ex-smoker Anemia Borderline Lyme serology (Acute) Hypertension (Acute) Heart palpitations (Acute) Exertional dyspnea (Acute) GERD (gastroesophageal reflux disease) Anxiety Diabetes Hyponatremia (Acute 12/08/10) Cyst of thyroid (Chronic 12/08/10) Medical History Heart palpitations "As per 3 cardiologists it's nothing to worry about" as per patient Hx of basal cell carcinoma "about 5 times" Cataracts, bilateral Hx of migraines Sleep apnea C-PAP Recurrent spontaneous pneumothorax 02/2022 & 03/2022 while in [place] as per patient - denies any issues at this time - unsure who specialist is but patient thinks he followed with a lung doctor PTSD (post-traumatic stress disorder) Exertional dyspnea GERD (gastroesophageal reflux disease) "mild" Type 2 diabetes mellitus IDDM/Oral Cyst of thyroid "They haven't even checked it in the last four years" as per patient Anxiety CKD (chronic kidney disease) stage 3, GFR 30-59 ml/min Follows with provider out [facility]/Telehealth as per patient "Kidney Function is down to 25%" Anemia Iron Supplement Urinary retention "I probably have an elarged prostate but they don't check it anymore" Hypertension Surgical History Hx of esophagogastroduodenoscopy Hx of colonoscopy Hx of basal cell carcinoma excision multiple History of tonsillectomy Family History (Updated 02/24/25 @ 13:57 by Sammie Betancourt MD) Other Family history non-contributory Social History (Updated 02/24/25 @ 13:57 by Sammie Betancourt MD) Smoking Status: Former smoker Tobacco Type: Cigarettes and Smokeless Tobacco (Dip or Chew) Age Started Using Tobacco: 6; Age Quit Using Tobacco: 37; Cigarettes Per Day: 35; Second Hand Exposure: No; Do You Dip or Chew Tobacco: Yes (Advised); Hx Alcohol Use: No Hx Substance Use: No Preferred Language: Ugandan Communication Ability: Effective Icu Specialist Required: No Beliefs That Will Affect Care: None marital status: Current Living Situation: Spouse Feels Safe at Home: Yes Assistive Devices: CPAP and Glasses Review of Systems Review of Systems: All systems reviewed & are unremarkable except as noted in HPI & below Physical Exam Constitutional: WD/WN, vitals as above Eyes: PERRL, conjunctivae normal, anicteric sclerae ENMT: external ear and nose normal, oropharynx normal Neck: trachea midline, no thyromegaly Respiratory: normal respiratory effort, lungs clear to auscultation Cardiovascular: Rate/Rhythm: regular rate and regular rhythm (With frequent ectopy) Heart Sounds: normal S1 and normal S2; no gallop, no murmur and no cardiac rub Vessels: dorsalis pedis pulses present; no JVD, no carotid bruit and no abdominal aortic bruit Extremities: no edema Chest (Breasts): Chest: normal inspection of chest Gastrointestinal (Abdomen): normal bowel sounds, soft, nontender, no hepatosplenomegaly Musculoskeletal: Extremities: extremities normal to inspection; no cyanosis and no clubbing Skin: no rashes, warm and dry Neurologic: moves all extremities and awake; no focal motor deficits Psychiatric: A+Ox3, euthymic affect Lymphatic: no lymphedema Results & Data Results & Data Vital Signs (Past 12 Hours) Vital Signs Temp Pulse Pulse Resp BP BP Pulse Ox 02/24/25 12:00 64 16 150/57 H 95 02/24/25 11:25 42 L 19 168/77 H 95 02/24/25 09:39 72 16 173/97 H 97 02/24/25 09:39 96 02/24/25 09:19 36.5 C 79 18 141/62 H 97 O2 Del Method 02/24/25 12:00 Room Air 02/24/25 11:25 Room Air 02/24/25 09:39 Room Air 02/24/25 09:39 Room Air 02/24/25 09:19 Room Air Laboratory Results CBC, BMP, magnesium, LFTs, troponin, TSH, troponin, and Lyme titer reviewed Diagnostic Findings CXR image personally reviewed by me and agree with the following report: Chest X-Ray 02/24/25 09:27 SINGLE VIEW CHEST CLINICAL HISTORY: Dysrhythmia FINDINGS: An AP, portable, upright chest radiograph is compared to study dated 01/27/2025 and correlated with chest CT dated 09/09/2024. The heart is enlarged. There is mild prominence of the pulmonary vasculature. Chronic interstitial thickening is similar to previous. There is bibasilar scarring/atelectasis. No airspace consolidation or large pleural effusion is identified. No pneumothorax is seen. The skeletal structures are osteopenic. The bony thorax is grossly intact. IMPRESSION: 1. Cardiomegaly with prominence of the pulmonary vasculature. Correlate clinically for evidence of mild fluid overload/congestive change. 2. No airspace consolidation or large pleural effusion is identified. ACT 112: Negative or not required by law. Electronically signed by: Henry Ramirez M.D. 02/24/2025 11:17 AM ECG Additional Comments: ECG on 02/24/2025 at 9:28 AM with sinus rhythm with PVCs, rate 71, no acute ischemic changes Code Status & VTE Plan Code Status Full code VTE Prophylaxis Plan VTE Prophylaxis will be ordered: Yes PG Care Time/CCT Total # of Minutes Spent Total Time Spent with Patient: Total time spent is greater than 50% in coordination of care (as documented) at patient's floor/unit and/or counseling patient: Coding Level of Care Code 50370 INT INP/OBS CARE 3/75MIN Diagnoses Dizziness R42 Hyponatremia E87.1 Type 2 diabetes mellitus E11.9 CKD (chronic kidney disease) stage 3, GFR 30-59 ml/min N18.30
[2025-02-24] MEDS ORDERED: DOCUSATE SODIUM 100 MG CAP PO PRN (13:39)
[2025-02-24] MEDS: MAGNESIUM SULFATE / D5W 1 GM/100 ML BAG IV SCH (14:31)
--- NOTE | 2025-02-24 15:39 | XCELERA ---
[id number]
[2025-02-24] MEDS ORDERED: GLUCOSE 40% GEL 15 GM TUBE PO PRN (15:55)
[2025-02-24] MEDS ORDERED: ONDANSETRON INJ 2 MG/ML 2 ML VIAL IV PRN (15:55)
[2025-02-24] MEDS ORDERED: CARBOHYDRATES FOR HYPOGLYCEMIA PO PRN (15:55)
[2025-02-24] MEDS ORDERED: GLUCAGON FOR INJ 1 MG VIAL SQ PRN (15:55)
[2025-02-24] MEDS ORDERED: GLUCOSE 10 TAB/TUBE PO PRN (15:55)
[2025-02-24] MEDS ORDERED: DEXTROSE 50% 50 ML SYRINGE IV PRN (15:55)
[2025-02-24] MEDS: FERROUS SULFATE 325 MG TAB PO SCH (16:04)
[2025-02-24] MEDS: MAGNESIUM OXIDE 400 MG TAB PO SCH (16:12)
[2025-02-24] MEDS: INSULIN ASPART PER UNIT CHARGE SC SCH (16:52)
--- NOTE | 2025-02-24 17:34 | Cardiology Consultation ---
Date of Consultation February 24, 2025 Assessment & Plan (1) Premature ventricular beats: (2) Ventricular bigeminy: (3) Hypertension: (4) Bradycardia: Artifactual secondary to ventricular ectopic beats Plan 74-year-old male with hypertension referred for concerns regarding send slow heart rates on wearable monitor. Chronic ventricular ectopy and bigeminy noted on multiple past assessments. Recent discontinuation of beta-levy actually increased frequency of ectopy and "bradycardia" 1. Chronic ventricular ectopy and bigeminy: Discussed mechanism in detail with patient and family. Suspect bradycardia observed is artifactual and would recom mend resuming low-dose beta-levy with metoprolol succinate 12.5 mg twice per day. Patient to be maintained on telemetry tonight with first dose this evening. Will attempt obtain event monitor previously worn Echocardiogram with preserved LV systolic function. EKG without conduction abnormality 2. Longstanding hypertension, greater than 50 years on multiple drug regimen including lisinopril, hydralazine, terazosin. Previously on carvedilol and amlodipine As above we will reinstitute low-dose beta-levy consider resuming amlodipine 2.5 mg nightly 3. CKD stage III-IV History of Present Illness Reason for Consultation: Chronic ventricular ectopy, bigeminy Requesting Physician: Sammie Betancourt MD Attending Physician: Sammie Betancourt MD History of Present Illness Patient is a 74-year-old male with ongoing concerns which include 1. Longstanding hypertension since age 18 on multiple drug regimen 2. Chronic ventricular ectopy, bigeminy 3. Obstructive sleep apnea with prior spontaneous pneumothorax limiting CPAP use 4. Type 2 diabetes mellitus 5. CKD stage IIIb-IV Patient sought evaluation due to concerns regarding low heart rates noted on Ap ple watch and home pulse oximeter and blood pressure cuff. He has been previously observed to have frequent ventricular ectopy and bigeminy. Recently stopped carvedilol due to concerns regarding low heart rate readings. Patient sensitized to ventricular ectopy and can feel events when occur.No specific exacerbation with exertion or activity, predominantly at rest Notes mild nausea no chest pains no syncope no tachyarrhythmias. Denies fevers chills or unexplained infections appetite is only fair. Notes no bleeding issues melena hematochezia dysuria hematuria. [facility] [place] Has recently had event monitor placed without results per available Allergies Allergy/AdvReac Type Severity Reaction Status Date / Time hydrochlorothiazide Allergy Unknown listed as Unverified 09/09/24 18:13 allergy on list from [place] Home Medications Medication Instructions Recorded Confirmed Type clonazepam 1 mg tablet (Klonopin) 1 mg PO BID ptsd/anxiety 09/14/20 02/24/25 History lisinopril 40 mg tablet 20 mg PO QAM 09/14/20 02/24/25 History omeprazole 20 mg tablet,delayed 20 mg PO DAILY PRN Heartburn 07/03/23 02/24/25 History release docusate sodium 100 mg capsule 100 mg PO TID PRN Constipation 10/04/23 02/24/25 History (Stool Softener) ferrous sulfate 325 mg (65 mg 325 mg PO .Q OTHER DAY 10/04/23 02/24/25 History iron) tablet magnesium oxide 420 mg tablet 420 mg PO .Q OTHER DAY 10/04/23 02/24/25 History ibgqppfjpxea-alryolrt-dwotdg 1 tab PO QAM 10/04/23 02/24/25 History tablet (Multivitamin 50 Plus tablet) insulin glargine 100 unit/mL 38 unit subcut QAM 01/02/24 02/24/25 History subcutaneous solution (Lantus U-100 Insulin) ammonium lactate 12 % topical cream 1 applic topical DAILY PRN Dry Skin 09/09/24 02/24/25 History cholecalciferol (vitamin D3) 25 5,000 unit PO DAILY 09/09/24 02/24/25 History mcg (1,000 unit) tablet glucose 4 gram chewable tablet 8 g PO DAILY PRN low blood sugar 09/09/24 02/24/25 History hydralazine 50 mg tablet 50 mg PO TID 09/09/24 02/24/25 History lanolin alcohols-mineral 1 applic topical DAILY PRN Dry Skin 09/09/24 02/24/25 History oil-w.petrolatum-ceresin topical cream (Eucerin topical cream) atorvastatin 20 mg tablet 20 mg PO DAILY 02/24/25 02/24/25 History sodium bicarbonate 650 mg tablet 650 mg PO QAM 02/24/25 02/24/25 History terazosin 2 mg capsule 4 mg PO HS 02/24/25 02/24/25 History Patient History Medical History Heart palpitations "As per 3 cardiologists it's nothing to worry about" as per patient Hx of basal cell carcinoma "about 5 times" Cataracts, bilateral Hx of migraines Sleep apnea C-PAP Recurrent spontaneous pneumothorax 02/2022 & 03/2022 while in [place] as per patient - denies any issues at this time - unsure who specialist is but patient thinks he followed with a lung doctor PTSD (post-traumatic stress disorder) Exertional dyspnea GERD (gastroesophageal reflux disease) "mild" Type 2 diabetes mellitus IDDM/Oral Cyst of thyroid "They haven't even checked it in the last four years" as per patient Anxiety CKD (chronic kidney disease) stage 3, GFR 30-59 ml/min Follows with provider out [facility]/Telehealth as per patient "Kidney Function is down to 25%" Anemia Iron Supplement Urinary retention "I probably have an elarged prostate but they don't check it anymore" Hypertension Surgical History Hx of esophagogastroduodenoscopy Hx of colonoscopy Hx of basal cell carcinoma excision multiple History of tonsillectomy Family History Other Family history non-contributory Social History Smoking Status: Former smoker Tobacco Type: Cigarettes Age Started Using Tobacco: 6; Age Quit Using Tobacco: 37; Cigarettes Per Day: 35; Second Hand Exposure: No; Do You Dip or Chew Tobacco: Yes; Hx Alcohol Use: No Hx Substance Use: No Preferred Language: Namibian Communication Ability: Effective Armature Repairer Required: No Beliefs That Will Affect Care: None marital status: Current Living Situation: Spouse Other Information That Helps Us Care for You: No Feels Safe at Home: Yes Safety Concerns: Feels Safe At This Time Assistive Devices: Glasses and Walker Review of Systems Review of Systems: All systems reviewed & are unremarkable except as noted in Subjective Physical Exam Constitutional: + thin; no acute distress Eyes: PERRL, conjunctivae normal, anicteric sclerae ENMT: external ear and nose normal, oropharynx normal Neck: trachea midline, no thyromegaly Respiratory: normal respiratory effort, lungs clear to auscultation Cardiovascular: Rate/Rhythm: regular rate and regular rhythm Heart Sounds: normal S1 and normal S2; no murmur Vessels: no JVD Extremities: no edema Occasional audible ectopic beat Gastrointestinal (Abdomen): normal bowel sounds, soft, nontender, no hepatosplenomegaly Musculoskeletal: no cyanosis or clubbing, extremities motor strength 5/5 Results & Data Vital Signs (Past 12 Hours) Vital Signs Temp Pulse Pulse Resp BP BP BP 02/24/25 16:28 02/24/25 16:04 176/92 H 02/24/25 15:41 36.3 C L 73 18 185/73 H 02/24/25 15:19 71 16 177/83 H 02/24/25 14:34 71 16 184/80 H 02/24/25 12:42 72 02/24/25 12:00 64 16 150/57 H 02/24/25 11:25 42 L 19 168/77 H 02/24/25 09:39 72 16 173/97 H 02/24/25 09:39 02/24/25 09:19 36.5 C 79 18 141/62 H Pulse Ox O2 Del Method 02/24/25 16:28 Room Air 02/24/25 16:04 02/24/25 15:41 96 Room Air 02/24/25 15:19 95 Room Air 02/24/25 14:34 96 Room Air 02/24/25 12:42 02/24/25 12:00 95 Room Air 02/24/25 11:25 95 Room Air 02/24/25 09:39 97 Room Air 02/24/25 09:39 96 Room Air 02/24/25 09:19 97 Room Air Laboratory Results Laboratory Results - last 24 hr 02/24/25 02/24/25 09:38 16:03 WBC 7.94 RBC 3.66 L Hgb 11.1 L Hct 31.1 L MCV 85.0 MCH 30.3 MCHC 35.7 RDW Std Deviation 36.0 L RDW Coeff of Brett 11.7 Plt Count 281 MPV 10.0 Immature Gran % (Auto) 0.4 Neut % (Auto) 72.5 Lymph % (Auto) 18.0 [place] % (Auto) 7.1 Eos % (Auto) 1.4 Baso % (Auto) 0.6 Neut # (Auto) 5.76 Lymph # (Auto) 1.43 [place] # (Auto) 0.56 Eos # (Auto) 0.11 Baso # (Auto) 0.05 Immature Gran # (Auto) 0.03 Sodium 129 L Potassium 4.3 Chloride 96 L Carbon Dioxide 24 Anion Gap 9 BUN 29 H Creatinine 2.82 H Est Cr Clr Drug Dosing 25.4 eGFR 22.62 BUN/Creatinine Ratio 10.3 Glucose 230 H POC Glucose 123 H Calcium 9.9 Magnesium 1.7 Total Bilirubin 0.4 AST 15 ALT 13 Alkaline Phosphatase 48 Troponin I High Sens 8.2 Total Protein 7.0 Albumin 4.3 Globulin 2.7 Albumin/Globulin Ratio 1.6 TSH 1.496 Lyme Disease Screen Negative PG Care Time/CCT Total # of Minutes Spent Total Time Spent with Patient: Total time spent is greater than 50% in coordination of care (as documented) at patient's floor/unit and/or counseling patient: Coding Level of Care Code 41579 IN/OBS CONSULT LVL 5,80M Diagnoses Premature ventricular beats I49.3 Ventricular bigeminy I49.8 Hypertension I10 Hypertension type: unspecified Bradycardia R00.1 (3) Hypertension Hypertension type: unspecified Qualified Code(s): I10 - Essential (primary) hypertension
[2025-02-24] MEDS: ACETAMINOPHEN 325 MG TAB PO PRN (18:04)
[2025-02-24] MEDS: COUGH DROP (SUGAR FREE) LOZ 24 LOZ/1 BOX BUCCAL PRN (18:12)
[2025-02-24] MEDS: TERAZOSIN HCL 1 MG CAP PO SCH (20:11)
[2025-02-24] MEDS: clonazePAM 1 MG TAB PO SCH (20:11)
[2025-02-24] MEDS: HEPARIN SOD 5,000 UNIT/0.5 ML VIAL SQ SCH (20:12)
--- NOTE | 2025-02-25 06:32 | Electrocardiogram Report ---
Test Reason : Blood Pressure : */* mmHG Vent. Rate : 71 BPM Atrial Rate : 71 BPM P-R Int : 192 ms QRS Dur : 82 ms QT Int : 394 ms P-R-T Axes : 69 11 108 degrees QTcB Int : 428 ms Sinus rhythm with occasional Premature ventricular complexes Septal infarct , age undetermined Abnormal ECG When compared with ECG of 27-Jan-2025 20:19, Septal infarct is now Present Confirmed by Nioklai Hampton ([id number]) on 02/25/2025 6:31:50 AM Referred By: Confirmed By: Nikolai Hampton
[2025-02-25 06:41] LABS: Hematocrit (blood only) 30.1 % (42.0-52.0); Hemoglobin 10.5 g/dL (14.0-18.0); Immature Granulocytes # (auto) 0.03 K/uL (0.01-0.20); Immature Granulocytes % (auto) 0.4 %; Mean Corpuscular Hemoglobin 30.0 pg (25.0-34.0); Mean Corpuscular Volume 86.0 fL (80.0-100.0); Platelet Count 246 K/uL (130-400); RDW Standard Deviation 36.8 fL (36.4-46.3); Red Blood Count 3.50 M/uL (4.70-6.10); White Blood Count 7.52 K/ul (4.8-10.8)
[2025-02-25 07:07] LABS: Anion Gap 8.0 (3-11); Blood Urea Nitrogen 26.0 mg/dl (6-23); Calcium 9.4 mg/dl (8.6-10.3); Carbon Dioxide 25.0 mmol/L (21-32); Chloride 96.0 mmol/L (98-107); Creatinine Clr Calc Pharmacy 25.1 ml/min; Glucose 131.0 mg/dl (70-99(Fasting)); Iron 69.0 mcg/dl (35-175); Magnesium 2.0 mg/dl (1.7-2.4); Potassium 5.0 mmol/L (3.5-5.1); Sodium 129.0 mmol/L (136-145); Total Iron Binding Cap Calc 305.0 mcg/dl (250-450); Transferrin 218.0 mg/dl (200-360); Transferrin (FE) Percent Satur 23.0 % (20-50)
[2025-02-25 07:22] LABS: Folate (Folic Acid),Ser orPlas > 22.30 ng/ml (>5.38)
[2025-02-25 07:23] LABS: Vitamin B12 635 pg/ml (180-914)
[2025-02-25 07:26] LABS: Ferritin 51.0 ng/ml (8-388)
[2025-02-25 07:30] VITALS: RESP 18
[2025-02-25 07:34] LABS: Hemoglobin A1C 6.9 % (4.5-5.6)
[2025-02-25] MEDS: LANTUS PER UNIT CHARGE SQ SCH (08:33)
[2025-02-25] MEDS: CHOLECALCIFEROL 25 MCG (1000 UNITS) TAB PO SCH (08:35)
[2025-02-25] MEDS: ATORVASTATIN 20 MG TAB PO SCH (08:35)
[2025-02-25] MEDS: CEROVITE ADV FORMULA TAB PO SCH (08:35)
[2025-02-25] MEDS: SODIUM BICARBONATE 650 MG TAB PO SCH (08:36)
[2025-02-25 11:20] VITALS: PULSE 78; TEMP 97.7; O2SAT 94
--- NOTE | 2025-02-25 11:30 | Cardiology Progress Note ---
Date of Service February 25, 2025 Assessment & Plan (1) Premature ventricular beats: (2) Ventricular bigeminy: (3) Hypertension: (4) Bradycardia: Plan: Artifactual secondary to ventricular ectopic beats Plan 74-year-old male with hypertension referred for concerns regarding send slow heart rates on wearable monitor. Chronic ventricular ectopy and bigeminy noted on multiple past assessments. Recent discontinuation of beta-levy actually increased frequency of ectopy and "bradycardia" 1. Chronic ventricular ectopy and bigeminy: Discussed mechanism in detail with patient and family. Suspect bradycardia observed is artifactual and would recommend resuming low-dose beta-levy with metoprolol succinate 12.5 mg twice per day. Patient to be maintained on telemetry tonight with first dose this sanchez lariosg. Will attempt obtain event monitor previously worn Echocardiogram with preserved LV systolic function. EKG without conduction abnormality 2. Longstanding hypertension, greater than 50 years on multiple drug regimen including lisinopril, hydralazine, terazosin. Previously on carvedilol and amlodipine As above we will reinstitute low-dose beta-levy consider resuming amlodipine 2.5 mg nightly 3. CKD stage III-IV 02/25/2025 Ventricular ectopy and bigeminy improved with low-dose beta-levy. No bradycardia arrhythmias or pauses 1. Chronic ventricular ectopy and bigeminy with artifactually low heart rate on wearable monitor. Continue metoprolol succinate 12.5 mg twice per day 2. Longstanding hypertension with hypertensive kidney disease, hyponatremia Agree with reduction in lisinopril consider reinstituting amlodipine at least at 2.5 mg nightly. Patient discontinued this drug due to concerns regarding bradycardia 3. CKD stage III-IV: Patient has follow-up with nephrology. Will need to follow volume status closely, consider AV fistula Admission and Anticipated Discharge Date Admission Date: February 24, 2025 Subjective Patient seen and examined, chart, medications, telemetry reviewed. Ventricular ectopy reduced following administration of beta-levy last evening no bradycardia arrhythmias. No chest pains or dizziness. Blood pressure not significantly elevated this morning. Review of Systems Review of Systems: All systems reviewed & are unremarkable except as noted in Subjective Physical Exam Constitutional: + thin; no acute distress Eyes: PERRL, conjunctivae normal, anicteric sclerae ENMT: external ear and nose normal, oropharynx normal Neck: trachea midline, no thyromegaly Respiratory: normal respiratory effort, lungs clear to auscultation Cardiovascular: Rate/Rhythm: regular rate and regular rhythm Heart Sounds: normal S1 and normal S2; no murmur Vessels: no JVD Extremities: no edema Gastrointestinal (Abdomen): normal bowel sounds, soft, nontender, no hepatosplenomegaly Musculoskeletal: no cyanosis or clubbing, extremities motor strength 5/5 Results & Data Vital Signs (Past 12 Hours) Vital Signs Temp Pulse Pulse Resp BP Pulse Ox Pulse Ox 02/25/25 11:18 36.5 C 78 18 146/69 H 94 02/25/25 07:29 36.6 C 60 18 123/70 95 02/25/25 05:40 86 96 02/25/25 03:00 36.5 C 56 L 17 130/67 94 02/24/25 23:36 72 94 O2 Del Method O2 Del Method 02/25/25 11:18 Room Air 02/25/25 07:29 Room Air 02/25/25 05:40 Room Air 02/25/25 03:00 Room Air 02/24/25 23:36 Room Air Laboratory Results Laboratory Results - last 24 hr 02/24/25 02/24/25 02/24/25 09:38 16:03 20:00 WBC RBC Hgb Hct MCV MCH MCHC RDW Std Deviation RDW Coeff of Brett Plt Count MPV Immature Gran % (Auto) Neut % (Auto) Lymph % (Auto) Sanborn % (Auto) Eos % (Auto) Baso % (Auto) Neut # (Auto) Lymph # (Auto) Sanborn # (Auto) Eos # (Auto) Baso # (Auto) Immature Gran # (Auto) Sodium Potassium Chloride Carbon Dioxide Anion Gap BUN Creatinine Est Cr Clr Drug Dosing eGFR BUN/Creatinine Ratio Glucose POC Glucose 123 H 149 H Estimat Average Glucose Hemoglobin A1c Calcium Magnesium Iron TIBC Transferrin Transferrin % Sat Ferritin Troponin I High Sens 8.2 Vitamin B12 Folate Lyme Disease Screen Negative 02/25/25 02/25/25 06:17 07:20 WBC 7.52 RBC 3.50 L Hgb 10.5 L Hct 30.1 L MCV 86.0 MCH 30.0 MCHC 34.9 RDW Std Deviation 36.8 RDW Coeff of Brett 11.8 Plt Count 246 MPV 10.4 Immature Gran % (Auto) 0.4 Neut % (Auto) 76.3 Lymph % (Auto) 14.4 Sanborn % (Auto) 6.9 Eos % (Auto) 1.6 Baso % (Auto) 0.4 Neut # (Auto) 5.74 Lymph # (Auto) 1.08 L Sanborn # (Auto) 0.52 Eos # (Auto) 0.12 Baso # (Auto) 0.03 Immature Gran # (Auto) 0.03 Sodium 129 L Potassium 5.0 Chloride 96 L Carbon Dioxide 25 Anion Gap 8 BUN 26 H Creatinine 2.91 H Est Cr Clr Drug Dosing 25.1 eGFR 21.78 BUN/Creatinine Ratio 8.9 L Glucose 131 H POC Glucose 127 H Estimat Average Glucose 151 Hemoglobin A1c 6.9 H Calcium 9.4 Magnesium 2.0 Iron 69 TIBC 305 Transferrin 218 Transferrin % Sat 23 Ferritin 51.0 Troponin I High Sens Vitamin B12 635 Folate > 22.30 Lyme Disease Screen PG Care Time/CCT Total # of Minutes Spent Total Time Spent with Patient: Total time spent is greater than 50% in coordination of care (as documented) at patient's floor/unit and/or counseling patient: Coding Level of Care Code 60016 SUB INP/OBS CARE 3/50MIN Diagnoses Premature ventricular beats I49.3 Ventricular bigeminy I49.8 Hypertension I10 Hypertension type: unspecified Bradycardia R00.1 (3) Hypertension Hypertension type: unspecified Qualified Code(s): I10 - Essential (primary) hypertension
[2025-02-25] MEDS: METOPROLOL SUCC 25MG EXT REL TAB PO SCH (11:39)
--- NOTE | 2025-02-25 12:02 | Discharge Summary ---
Discharge Summary Date of Service February 25, 2025 Principal Dx & Hospital Course #1 = Principal Diagnosis (1) Premature ventricular beats: (2) Hyponatremia: (3) Type 2 diabetes mellitus: (4) CKD (chronic kidney disease) stage 4, GFR 15-29 ml/min: Plan This patient is a 74-year-old male with a history of DM2, HTN, HLD, recurrent spontaneous PTX, former smoker, benign essential tremor, GERD, anxiety disorder/PTSD, BPH, CKD stage IV, chronic anemia, MGUS, gout, and FÁTIMA no longer on CPAP due to recurrent PTX, who presents to the ED with dizziness and a low heart rate as per his Apple Watch and home pulse oximeter as well as home BP cuff. His Apple Watch has been noting a low heart rate primarily overnight but also sometimes during the day as low as in the 40s lasting greater than 10 minutes and sometimes into the upper 20s at night. He reports he just saw a television schedule coordinator at [facility] in [place] 2 weeks ago for the same issue, but was told he had nothing to worry about. He did finish a 1-week event monitor throug h the [employer] about 2 weeks ago but has not yet received the results. He is concerned because when he has the presumed low heart rate, he does feel nauseous and sort of a "flip" in his stomach as well as a dull headache on the left side of his head. He has not passed out. Denies chest pains or shortness of breath. The episodes have been coming on much more frequently just in the last 3 days. Of note, he did stop taking carvedilol about 2 weeks ago due to the presumed low heart rate. An ECG in the ED showed PVCs. Laboratory workup was fairly unremarkable except for mild hyponatremia, mild chronic anemia, and acute renal insufficiency over CKD stage IV. He was admitted for workup for dizziness and bradycardia as well as for hyponatremia and acute renal insufficiency. #Dizziness/possible bradycardia-seems to be having more frequent bigeminy and PVCs that are not being picked up by his home devices. His heart rate on telemetry throughout hospitalization was normal at 60-70s, but his symptoms exactly correlate with the bigeminy and PVCs he is having. He is mildly dry as evidenced by increasing BUN/creatinine from baseline but otherwise no significant electrolyte abnormalities. Lyme titer negative, troponin negative, no evidence of ischemia on ECG, no chest pain. He recently stopped taking carvedilol 2 weeks ago and this may have allowed more frequent PVCs to occur. Also, no longer able to wear CPAP for the last year due to recurrent pneumothoraces. He was seen by Cardiology here who agreed it was the lack of beta blockade that caused more frequent PVCs to occur. Not true bradycardia. ECHO here normal Overnight POx study here was actually normal--> no nocturnal hypoxemia -started Toprol XL 12.5mg po bid -f/u with Cardiology Dr. Miranda at [facility] as outpt #Hyponatremia/JOSE on CKD stage IV-Sodium baseline 132 and here was 129. This is likely secondary to CKD stage IV. He follows with nephrology as an outpatient. His BPs are somewhat elevated. His lisinopril dose was recently decreased to 20 mg daily and his carvedilol was recently discontinued due to his presumed bradycardia. Creatinine increased to 2.9 from usual 2.4. K+ 5.0 and recently started on NaHCO3 tabs - Continue sodium bicarbonate 650 mg p.o. once daily - Follow BMP as outpt -f/u with Nephro closely as outpt as planned - Avoid nephrotoxic agents and renally dose medications when appropriate -continue lower dose of lisinopril 20mg po daily #DM2 with hyperglycemia-blood sugars here in the 250 range. He takes Lantus 38 units once daily at home. Glucose here improved. HgbA1C controlled at 6.9% - Continue Lantus 38 units once daily on discharge - Diabetic diet #HTN/HLD-BPs are elevated here. He has had recent changes to his medications to include discontinuing carvedilol and decreasing lisinopril from 40 mg to 20 mg once daily. - Continue hydralazine 50 mg p.o. 3 times daily - Continue lisinopril 20 mg p.o. once daily, terazosin 4 mg p.o. at bedtime which is also for his BPH -started Toprol XL and recommend resuming previous amlodipine 2.5mg po hs on discharge - Monitor blood pressures at home #Chronic anemia/MGUS-Hgb fairly stable at 11, normocytic, previously followed with hematology at [facility] but has not been there in a while - Checked iron studies, B12, folate-all normal - Follow CBC as outpt - Follow-up with hematology as an outpatient -continue home ferrous sulfate #Former smoker/history of recurrent spontaneous PTX-with a previous 110-novb-znol smoking history, yet quit 37 years ago. He is no longer allowed to fly or uses CPAP machine due to history of 3 spontaneous PTX. No acute issues #Anxiety disorder/PTSD-no acute issues - Continue home clonazepam scheduled twice daily #GERD-no acute issues - Continue home omeprazole as needed #Gout-no acute issues - Takes colchicine as needed #FÁTIMA-previously well-controlled on CPAP but no longer allowed to use this given his multiple recurrent spontaneous PTX. This could be contributing to his worsening bradycardia - Checked overnight pulse oximetry and was norml-he has lost weight since he initially was dxd with FÁTIMA so perhaps it has now resolved DVT prophylaxis-heparin SQ, SCDs Disposition-dc to home Notes For Next Care Provider Medication Changes From Visit see med list Admission HPI Per Admitting Provider This patient is a 74-year-old male with a history of DM2, HTN, HLD, recurrent spontaneous PTX, former smoker, benign essential tremor, GERD, anxiety disorder/PTSD, BPH, CKD stage III, chronic anemia, MGUS, gout, and FÁTIMA no longer on CPAP due to recurrent PTX, who presents to the ED with dizziness and a low heart rate as per his Apple Watch and home pulse oximeter as well as home BP cu ff. His Apple Watch has been noting a low heart rate primarily overnight but also sometimes during the day as low as in the 40s lasting greater than 10 minutes and sometimes into the upper 20s at night. He reports he just saw a television schedule coordinator at [facility] in [place] 2 weeks ago for the same issue, but was told he had nothing to worry about. He did finish a 1-week event monitor through the [employer] about 2 weeks ago but has not yet received the results. He is concerned because when he has the presumed low heart rate, he does feel nauseous and sort of a "flip" in his stomach as well as a dull headache on the left side of his head. He has not passed out. Denies chest pains or shortness of breath. The episodes have been coming on much more frequently just in the last 3 days. Of note, he did stop taking carvedilol about 2 weeks ago due to the presumed low heart rate. An ECG in the ED showed PVCs. Laboratory workup was fairly unremarkable except for mild hyponatremia, mild chronic anemia, and acute renal insufficiency over CKD stage IV. He will be admitted for workup for dizziness and bradycardia as well as for hyponatremia and acute renal insufficiency. Discharge Exam Constitutional WD/WN, vitals as above Neck trachea midline, no thyromegaly Respiratory normal respiratory effort, lungs clear to auscultation Cardiovascular Rate/Rhythm: regular rate and regular rhythm (With occasional ectopy) Heart Sounds: normal S1 and normal S2; no gallop, no murmur and no cardiac rub Vessels: no JVD Extremities: no edema Chest (Breasts) Chest: normal inspection of chest Gastrointestinal (Abdomen) normal bowel sounds, soft, nontender, no hepatosplenomegaly Musculoskeletal Extremities: extremities normal to inspection; no cyanosis and no clubbing Skin no rashes, warm and dry Neurologic moves all extremities and awake; no focal motor deficits Psychiatric A+Ox3, euthymic affect Lymphatic no lymphedema Discharge Plan Discharge Items Patient Disposition: Home - Self-Care Reason For Visit: SYMPTOMATIC PVCs, DIZZINESS Discharge Diagnosis: Symptomatic PVCs Condition on Discharge: Good Activity: Resume your previous activity Non-emergency contact: Primary Care Provider and Foot Drill Operator Call non-emergency contact if: you have any medication questions and your symptoms worsen Follow-up/Referrals: Edouard Miranda MD [Physician] - (Follow up within 2-3 weeks) Justin Ordoñez MD [Primary Care Provider] - (Please call the office to schedule a hospital follow up appointment.) Diet: Carb Consistent or DM2 and Heart Healthy Addtl Attending Provider Instructions: You were admitted with symptoms caused by frequent extra beats called Premature Ventricular Contractions (PVCs). These may be happening because your Coreg was discontinued. They cause your heart monitor to falsely alarm that you have a low heart rate when you in fact do not. You were started on metoprolol 12.5mg twice a day to help reduce the amount of PVCs. Please follow up with Cardiology as an outpatient. As your blood pressure remains elevated, you should also restart your amlodipine. Please continue to follow closely with Nephrology for your Chronic Kidney disease. It was a pleasure taking care of you-[employer] Fi! Sammie Betancourt M.D. Pending Studies at Discharge: No Stand-Alone Forms: My [employer], Smoking Cessation Medications and DC Order Prescriptions: New metoprolol succinate [Toprol XL] 25 mg tablet extended release 24 hr 12.5 mg PO BID Qty: 30 0RF amlodipine 2.5 mg tablet 2.5 mg PO HS Qty: 30 0RF metoprolol succinate 25 mg Tablet Extended Release 24 Hr 12.5 mg PO BID Qty: 15 0RF Continued clonazepam [Klonopin] 1 mg Tablet 1 mg PO BID lisinopril 40 mg Tablet 20 mg PO QAM omeprazole 20 mg tablet,delayed release (DR/EC) 20 mg PO DAILY PRN (Reason: Heartburn) magnesium oxide 420 mg Tablet 420 mg PO .Q OTHER DAY ferrous sulfate 325 mg (65 mg iron) Tablet 325 mg PO .Q OTHER DAY docusate sodium [Stool Softener] 100 mg Capsule 100 mg PO TID PRN (Reason: Constipation) Multivitamin 50 Plus Tablet 1 tab PO QAM insulin glargine [Lantus U-100 Insulin] 100 unit/mL Solution 38 unit SUBCUT QAM glucose 4 gram Tablet,Chewable 8 g PO DAILY PRN (Reason: low blood sugar) ammonium lactate 12 % Cream 1 applic TOPICAL DAILY PRN (Reason: Dry Skin) hydralazine 50 mg tablet 50 mg PO TID cholecalciferol (vitamin D3) 25 mcg (1,000 unit) Tablet 5,000 unit PO DAILY Eucerin Cream 1 applic TOPICAL DAILY PRN (Reason: Dry Skin) atorvastatin 20 mg Tablet 20 mg PO DAILY sodium bicarbonate 650 mg Tablet 650 mg PO QAM terazosin 2 mg Capsule 4 mg PO HS Discharge Orders: Discharge Order (Routine); Ordered 02/25/25 Ordered By: Sammie Springer/Other Patient Handouts: Managing Type 2 Diabetes Admission Data Admit Date/Time: 02/24/25 13:30 Attending Provider: Sammie Betancourt Admit Provider: Sammie Betancourt Primary Care Provider: Justin Ordoñez Other Providers: Edouard Miranda; Sammie Betancourt Hospital Stay Data Consultations 02/24/25 11:29 ED Decision to Admit Stat 02/24/25 13:30 Consult Cardiology Routine Diagnostic Imagining Performed ECHO Pending Results Patient Have Any Pending Studies at Discharge: No Discharge Instructions Given to Patient (Per Discharging Provider) You were admitted with symptoms caused by frequent extra beats called Premature Ventricular Contractions (PVCs). These may be happening because your Coreg was discontinued. They cause your heart monitor to falsely alarm that you have a low heart rate when you in fact do not. You were started on metoprolol 12.5mg twice a day to help reduce the amount of PVCs. Please follow up with Cardiology as an outpatient. As your blood pressure remains elevated, you should also restart your amlodipine. Please continue to follow closely with Nephrology for your Chronic Kidney disease. It was a pleasure taking care of you-[employer] Fi! Sammie Betancourt M.D. Total Time Total Time Spent Total Time Spent (In Minutes): 35 min Total Time Includes: Examination of the Patient, Discharge Planning, Medication Reconciliation and Communication With Other Providers (Cardiology) Coding Level of Care Code 99471 INP/OBS DISCH >30 MIN Diagnoses Premature ventricular beats I49.3 Hyponatremia E87.1 Type 2 diabetes mellitus E11.9 CKD (chronic kidney disease) stage 4, GFR 15-29 ml/min N18.4
[2025-02-25 12:37] VITALS: BP 185/73
[2025-02-26] MEDS ORDERED: MAGNESIUM OXIDE 400 MG TAB PO SCH (09:00)
[2025-02-26] MEDS ORDERED: FERROUS SULFATE 325 MG TAB PO SCH (09:00)
== END 2025-02-25 13:13 | disposition home or self-care (01) ==
LOC: SUATTDRO → 2S 09:16 → ED 09:16 → 2S 15:20